=== PATIENT | male | born 1940 | race Hispanic/Latino ===

== ENCOUNTER 2019-02-16 12:49 | Inpatient (IN) | payer MEDICARE ==
[~2019-02-16 12:49] MED LIST: ISOVUE-370 76%-LOCM 1 ML ONE
[2019-02-16] MEDS ORDERED: Lorazepam 2 MG/ML VIAL ONE ×2 (13:10→16:31)
[2019-02-16 13:25] LABS: #Eosinphils 0.1 thou/uL (0.0-0.7); #Lymphocytes 0.8 thou/uL (1.20-3.40); #Monocytes 0.5 thou/uL (0.11-0.59); #Neutrophils 8.9 thou/uL (1.40-6.50); %Basophils 0.3 % (0.0-1.0); %Eosinophils 0.5 % (0.0-10.0); %Lymphocytes 7.8 % (21.0-51.0); %Monocytes 5.3 % (0.0-10.0); %Neutrophils 86.1 % (42.0-75.0); Hemoglobin 16.3 g/dL (14.0-18.0); Mean Corpuscular HGB CONC 31.5 g/dL (32.0-36.0); Mean Corpuscular Hemoglobin 29.4 pg (27.0-31.0); Mean Corpuscular Volume 93.4 fL (78.0-98.0); Mean Platelet Volume 10.2 fL (7.4-10.4); Platelet Count 164 thou/uL (130-400); RBC Distribution Width 14.6 % (11.5-14.5); Red Blood Cell (RBC) Count 5.56 mill/uL (4.70-6.10); White Blood Cell (WBC) Count 10.3 thou/uL (4.8-10.8)
--- NOTE | 2019-02-16 13:29 | RAD ---
Exam: Chest one view HISTORY:Short of breath Comparison: None FINDINGS: Lungs: Diffuse interstitial prominence bilaterally Cardiac silhouette:Accentuated by portable technique Pulmonary vessels: Mild pulmonary vascular prominence Pleural Spaces: Clear Pneumothorax: None Osseous abnormalities: None of acuity. IMPRESSION: Bilateral interstitial opacities as well as prominence of pulmonary vasculature. This cou ld relate to fluid overload. Correlation with clinical evaluation is recommended. As necessary imaging follow-up may also be obtained.
[2019-02-16 13:33] LABS: Actual Bicarbonate (HCO3a) 12.5 mEq/L (22-28); Analyzer IN Cardio ER; Base Excess (BEa) -11.3 mEq/L (-2.0 to +3.0); Calcium, Ionized 1.14 mmol/L (1.12-1.30); Carboxyhemoglobin (COHb) 0.8 gm% (0.0-3.0); Hemoglobin (Hb) 15.7 g/dL (14.0-18.0); O2 Tension (PaO2) 175.4 mmHg (> 70.0); Potassium - ABG Lab 3.88 mmol/L (3.70-5.30); pH, Arterial 7.33 (7.35-7.45)
[2019-02-16 13:35] LABS: CO2 Tension 24.4 mmHg (35.0-45.0); Puncture Site L.R.
[2019-02-16 13:50] LABS: ALT (SGPT) 14 U/L (8-55); AST (SGOT) 24 U/L (5-34); Albumin 3.7 g/dL (3.4-4.8); Alkaline Phosphatase 137 U/L (40-110); Anion Gap 20 mmol/L (10-20); BUN (Urea Nitrogen) 22 mg/dL (8.4-25.7); Bilirubin, Total 2.7 mg/dL (0.2-1.2); Calc. Creatinine Clearance 0 mL/min (70-130); Calcium 9.2 mg/dL (7.8-10.44); Carbon Dioxide 16 mmol/L (23-31); Chloride 108 mmol/L (98-107); Estimated GFR-MDRD 49; Globulin 4.2 g/dL (2.4-3.5); Glucose 114 mg/dL (83-110); Potassium 4.4 mmol/L (3.5-5.1); Protein, Total 7.9 g/dL (5.8-8.1); Sodium 140 mmol/L (136-145)
[2019-02-16 13:54] LABS: INR-International Normal Ratio 3.5; PTT 37.1 SEC (22.9-36.1); Prothrombin Time 34.6 SEC (12.0-14.7)
[2019-02-16] MEDS ORDERED: Azithromycin 500 MG VIAL ONE (13:57)
[2019-02-16] MEDS ORDERED: cefTRIAXone\\ROCEPHIN 2 GM VIAL ONE (13:57)
--- NOTE | 2019-02-16 14:56 | CT ---
Exam: CT angiogram of the chest HISTORY: Hypoxic respiratory failure. COPD. COMPARISON: 07/26/2012 TECHNIQUE: CT angiogram of the chest is performed in the axial plane. Three-dimensional reformatted i mages are submitted for interpretation FINDINGS: Mediastinum: Nonspecific increased fullness along the inferior right and left hilum as well as the varghese bcarinal region. Discrete mass is difficult to appreciate, due to timing of bolus. There does appear to be enlarged precarinal lymph node measuring 2.0 x 1.2 cm. HEART: Normal size. No significant pericardial fluid. Aorta: Atherosclerosis. No obvious aneurysm or dissection. Upper solid abdominal viscera: No abnormality enhancement. Trachea and central bronchi: Patent Pleural spaces: Loculated and free fluid in the right pleural space Lung parenchyma: Right lung: Extensive emphysematous change. Scarring and bullous formation in the apex. Additional ar eas of scarring and atelectasis in the dependent portion of the right lower lobe. 3 mm solid nodule in the medial right lung apex. Left lung: Emphysematous changes are extensive. Scarring and bullous formation in the apex. Groundgla ss nodule in the left upper lobe measuring 0.6 x 0.8 cm. There is a groundglass nodule measured 0.5 x 0.6 cm. Linear opacity in the lingula and left lower lobe likely represent areas of atelectasis and scar. Pneumothorax: None Osseous structures: No lytic or blastic lesions Pulmonary arteries: Adequate contrast opacification pulmonary arterial system to the level of segment al arteries. No filling defect to suggest pulmonary embolism IMPRESSION: 1. No evidence of pulmonary artery embolism to the level of segmental arteries 2. Extensive emphysematous changes. 3. Probable mediastinal and hilar lymphadenopathy, incompletely evaluated. 4. Groundglass nodule in the left upper lobe. No significant change since the examination from July 2012. Nevertheless, consider pulmonary consultation given underlying lung parenchymal changes. Code lung nodule
[2019-02-16 14:57] LABS: Bacteria/HPF None Seen HPF (None Seen); Bilirubin 1+ (Negative); Blood, Urine 2+ (Negative); Clarity Turbid (Clear); Glucose, Urine (Dipstick) Normal (Negative); Leukocyte Negative Leu/uL (Negative); Nitrite Negative (Negative); Protein, Urine (Dipstick) 200 mg/dL (Neg-Trace); Squamous Epithelial 0-3 HPF (0-3); Urobilinogen 6 mg/dL (Less than 2)
[2019-02-16] MEDS ORDERED: Acetaminophen 325 MG TAB PO PRN (14:57)
[2019-02-16] MEDS ORDERED: Ondansetron ODT 4 MG TAB PO PRN (14:57)
[2019-02-16] MEDS ORDERED: Senokot S 8.6-50 MG TAB PO PRN (14:57)
[2019-02-16] MEDS ORDERED: Ondansetron PF 4 MG/2 ML Vial IVP PRN (14:57)
[2019-02-16] MEDS ORDERED: Furosemide 40 MG/4 ML VIAL ONE (15:13)
[2019-02-16] MEDS ORDERED: methylPREDNISolone Sod Succ 40 MG VIAL ONE (15:13)
--- NOTE | 2019-02-16 15:50 | PDOC.EVN ---
Event Note - Event Note Event Note: Date/Time: 02/16/19 1548 I personally performed or re-performed the physical examination and medical decision making. I have verified all resident documentation or findings, including history, physical exam and/or medical decision making. Please see Dr. Mortensen's dictated H&P for full details. Additional history obtained from patient's . Patient is a 78 yo HM with PMH of HTN, extensive smoking history, and limited outpatient follow up. He presents with acute worsening of shortness of breath that his states started several months ago. Patient required BiPAP with EMS and receive nebulizer treatments and IV mag. In ER, bipap continued, labs were drawn, blood cultures obtained, and had CTA chest that was negative. BNP elevated >2000. ABG showed hypocapnea, pH 7.33. Receive lasix, solumedol, ativan, azithro, and rocephin. Exam remarkable for diffuse faint wheezes. Patient easily awaken and followed commands. plan to admit to IMCU, continue lasix, steroids, nebs, and bipap. TTE ordered to evaluate cardiac function. Procal ordered to evaluate for infection. trend lactate and troponin. Direct/indirect bili to evaluate hyperbilirunemia (likely due to vascular congestion).
[2019-02-16 17:26] LABS: Troponin I 0.036 ng/mL (< 0.028)
[2019-02-16 17:28] LABS: Bilirubin, Direct 1.4 mg/dL (0.1-0.3); Bilirubin, Total 2.2 mg/dL (0.2-1.2)
[2019-02-16 18:07] LABS: Lactic Acid 6.3 mmol/L (0.5-2.2)
[2019-02-16] MEDS: Ipratropium Bromide 2.5 ml Neb NEB SCH ×2 (18:31→22:17)
[2019-02-16] MEDS: Furosemide 40 MG/4 ML VIAL SLOW IVP SCH (19:15)
[2019-02-16] MEDS: methylPREDNISolone Sod Succ 40 MG VIAL IVP SCH (19:20)
[2019-02-16 19:30] LABS: Troponin I 0.016 ng/mL (< 0.028)
[2019-02-17] MEDS: methylPREDNISolone Sod Succ 40 MG VIAL IVP SCH ×2 (00:22→06:31)
[2019-02-17] MEDS: Ipratropium Bromide 2.5 ml Neb NEB SCH ×2 (02:10→08:10)
[2019-02-17 04:44] LABS: INR-International Normal Ratio 3.9; Prothrombin Time 37.8 SEC (12.0-14.7)
[2019-02-17 04:57] LABS: ALT (SGPT) 16 U/L (8-55); AST (SGOT) 20 U/L (5-34); Albumin 3.1 g/dL (3.4-4.8); Alkaline Phosphatase 96 U/L (40-110); Anion Gap 13 mmol/L (10-20); BUN (Urea Nitrogen) 22 mg/dL (8.4-25.7); Band 15 % (5-11); Bilirubin, Total 1.5 mg/dL (0.2-1.2); Calc. Creatinine Clearance 44 mL/min (70-130); Calcium 8.4 mg/dL (7.8-10.44); Carbon Dioxide 23 mmol/L (23-31); Chloride 109 mmol/L (98-107); Estimated GFR-MDRD 54; Globulin 3.4 g/dL (2.4-3.5); Glucose 168 mg/dL (83-110); Hemoglobin 14.3 g/dL (14.0-18.0); Lymphocytes 7 % (21-51); MDiff Complete? YES; Mean Corpuscular HGB CONC 31.8 g/dL (32.0-36.0); Mean Corpuscular Hemoglobin 29.3 pg (27.0-31.0); Mean Corpuscular Volume 92.1 fL (78.0-98.0); Mean Platelet Volume 10.2 fL (7.4-10.4); Neutrophil 78 % (42-75); Platelet Count 113 thou/uL (130-400); Platelet Morphology Comment Appears Decreased; Potassium 4.1 mmol/L (3.5-5.1); Protein, Total 6.5 g/dL (5.8-8.1); RBC Distribution Width 14.2 % (11.5-14.5); Red Blood Cell (RBC) Count 4.88 mill/uL (4.70-6.10); Sodium 141 mmol/L (136-145); White Blood Cell (WBC) Count 10.8 thou/uL (4.8-10.8)
--- NOTE | 2019-02-17 06:02 | PDOC.FM ---
- Subjective Subjective: Pt admitted yesterday to [facility] from ER for possible acute CHF exacerbation (new onset) vs COPD exacerbation (also new per family) on bipap. reports he had an inhaler at home that is out of medication, uncertain of what type of medication it was. Today patient is doing well, he is satting 97% on RA, respirations 18-24 on RA. He denies SOB. states she does not know how long he has had the ulcers present on BLE. - Objective Vital Signs & Weight: Vital Signs (12 hours) Temp Pulse Resp Pulse Ox 02/17/19 03:18 97.5 F L 02/17/19 02:10 87 19 100 02/16/19 23:13 97.4 F L 02/16/19 22:17 89 20 100 02/16/19 19:38 97.1 F L 02/16/19 18:41 98.3 F 02/16/19 18:31 96 25 H 96 Weight Weight 65.317 kg Most Recent Monitor Data Heart Rate from ECG 86 NIBP 120/75 NIBP BP-Mean 90 Respiration from ECG 21 SpO2 100 Result Diagrams: 02/17/19 04:30 02/17/19 04:30 Phys Exam - Physical Examination Constitutional: NAD dry MM Neck: no nodes, supple Respiratory: no wheezing, no rales, no rhonchi, clear to auscultation bilateral normal breath sounds at the bases Cardiovascular: RRR, no significant murmur Gastrointestinal: soft, non-tender, no distention Musculoskeletal: pulses present Neurological: non-focal, moves all 4 limbs Deviation from normal: flat affect Deviation from normal: bilateral venous stasis ulcers over lower extremities, L> R -: erythematous rash LLE on thigh, hx shingles Dx/Plan (1) COPD (chronic obstructive pulmonary disease) Status: Acute (2) Emphysema of lung Code(s): J43.9 - EMPHYSEMA, UNSPECIFIED Status: Acute (3) Lung nodule < 6cm on CT Code(s): R91.1 - SOLITARY PULMONARY NODULE Status: Acute (4) Hx of pulmonary embolus Code(s): Z86.711 - PERSONAL HISTORY OF PULMONARY EMBOLISM Status: Chronic (5) Venous stasis dermatitis of both lower extremities Code(s): I87.2 - VENOUS INSUFFICIENCY (CHRONIC) (PERIPHERAL) Status: Chronic (6) Venous stasis ulcer Code(s): I83.009 - VARICOSE VEINS OF UNSP LOWER EXTREMITY W ULCER OF UNSP SITE; L97.909 - NON-PRS CHRONIC ULC UNSP PRT OF UNSP LOW LEG W UNSP SEVERITY Status : Acute - Plan Plan: Acute Hypoxic Respiratory Failure -2/2 new onset CHF exacerbation vs acute COPD exacerbation -Admitted to [facility] on bipap, now satting upper 90s on RA. R increased 18-24 -Hx of PE, CTA r/o PE R/o Sepsis -T 100.6, R 37, tachy to 145 in ED. Vitals now improved R 19, P 87, T 97.5 -Bcx pending, UA showed no bacteria, Urine culture pending -Pt received rocephin and azithromycin for concern for pneumonia -Procal negative, will continue azithromycin for COPD exacerbation -Consider cellulitis of lower extremities with venous stasis ulcers/venous stasis changes Lactic Acidosis -likely 2/2 Acute hypoxic respiratory failure -9.3 trended down to 6.3, continue to trend Possible New Onset CHF -CXR showed pulmonary congestion, BNP >2000. -Trops downtrended: 0.016-> 0.035 -> 0.010 -Lungs clear on exam this AM -Echo pending Acute COPD exacerbation -solumedrol 125 mg in ED -Continue solumedrol, duonebs q4h -Azithromycin -CT showed emphysematous changes - reports he has inhaler at home but is unaware of diagnosis, this is possibly not a new diagnosis Lung nodule -3 mmm ground glass nodule Right apex -F/up with pulmonary recs Venous stasis ulcers BLE -pulses present bilat -Wound care consulted Elevated INR, Hx of PE -CTA r/o PE -Pt is on warfarin at home for hx PE -INR elevated >3 today, hold home warfarin, continue to monitor INR and monitor for s/s bleeding Elevated bili -Likely 2/2 vascular congestion -Improved on AM labs Dispo: Likely can transfer out of [facility] today to tele Addendum - Attending - Attending Attestation Date/Time: 02/17/19 9557 I personally evaluated the patient and discussed the management with Dr. Turcios I agree with the History, Examination, Assessment and Plan documented above with any addition or exceptions noted below. Patient doing much better. Off BiPAP. Transitioned to supplemental O2 and now on room air without difficulty. Ok to transfer to tele. Will continue Azithro and systemic steroids for treatment of COPD exacerbation. Inhalers added. Continue kacey Kiera nebs. ECHO pending. Patient with new onset HF. Will consult cards. Continue to diuresis. Add ACEI. Will add beta lin as tolerated. Supra therapeutic INR. Continue to hold warfarin. Restart at 2. Significant PVD and venous dz in bilateral lower extremities. Pop pulse on right. Unable to palpate on left. Wound care following for ulcers. CV surg as needed. Raghu
[2019-02-17] MEDS: Furosemide 40 MG/4 ML VIAL SLOW IVP SCH (06:31)
[2019-02-17 06:45] LABS: Magnesium 2.4 mg/dL (1.6-2.6); Phosphorus 3.9 mg/dL (2.3-4.7)
[2019-02-17 07:51] LABS: Lactic Acid 3.6 mmol/L (0.5-2.2)
[2019-02-17] MEDS ORDERED: Prevnar 13-Val Conj/PF 0.5 ML SYRINGE IM ONE (09:00)
[2019-02-17] MEDS ORDERED: FLU VACC TS2019-20(65YR UP)/PF 180 MCG/0.5 ML SYRINGE IM ONE (09:00)
--- NOTE | 2019-02-17 09:26 | RAD ---
1 VIEW CHEST: Date: 02/17/19 COMPARISON: 02/16/19. FINDINGS: Normal cardiac silhouette. Pulmonary vessels and hilum are normal. Costophrenic angles are clear. Chr onic change in lung parenchyma, without consolidation or mass. No pneumothorax or osseous abnormaliti es. IMPRESSION: No acute cardiopulmonary process. POS: [facility]
[2019-02-17] MEDS: Aspirin Chewable 81 MG TAB PO SCH (10:00)
[2019-02-17] MEDS: Azithromycin 250 MG TAB PO SCH (10:00)
[2019-02-17] MEDS ORDERED: Furosemide 40 MG/4 ML VIAL SLOW IVP SCH (10:08)
[2019-02-17] MEDS ORDERED: Furosemide 20 MG/2 ML VIAL SLOW IVP SCH ×2 (10:15→14:00)
--- NOTE | 2019-02-17 11:15 | HP ---
RESIDENT: Tirso Mortensen D.O. PRIMARY CARE PROVIDER: Dr. Dailey. HISTORY OF PRESENT ILLNESS: This is a 78-year-old male, who presents to the emergency room via EMS with complaint of progressively worsening shortness of breath with an acute worsening today. At the time of the history and physical, the patient was on BiPAP and had difficulty with mentation and communication. The majority of this history is from the patient's . Per patient's , the patient has had progressively worsening shortness of breath with exertion over the past six months. She also noticed that over the past 2 to 3 months, he has not been able to lie flat and sleep at night, has been having to prop himself up. She states that over the last 2 to 3 months, he has barely been able to walk around the grocery store without becoming short of breath. The patient has not seen a physician for this complaint. He does have a history of unprovoked pulmonary embolism, for which he [facility]. Upon arrival by EMS, it was noticed the patient to be in severe respiratory distress and placed him on BiPAP, gave him DuoNebs and magnesium. On arrival in the ER, they maintained BiPAP for what appeared to be a CHF or COPD exacerbation. He was given Lasix, Rocephin, and azithromycin in the emergency room. A CTA was also ordered to rule out pulmonary embolism. Per patient's , he has no known history of CHF or COPD. PAST MEDICAL HISTORY: Unprovoked pulmonary embolism. PAST SURGICAL HISTORY: None. SOCIAL HISTORY: Has a [id number] history of smoking. The patient has not smoked in last five years. Denies alcohol or recreational drugs. FAMILY HISTORY: Noncontributory. ALLERGIES: NONE. CURRENT MEDICATIONS: 1. Warfarin 1mg daily REVIEW OF SYSTEMS: GENERAL: Denies fever, chills, or fatigue. HEENT: Denies headaches, change in vision, double vision, or sore throat. CARDIOVASCULAR: Complains of worsening or exertional dyspnea and positional orthopnea. Denies chest pain or palpitations. Complains of periodic edema in the legs. RESPIRATORY: Complains of shortness of breath. Denies cough. GI: Denies nausea, vomiting, constipation, or diarrhea. EXTREMITIES: Complains of ulcerations on both lower extremities and periodic edema. NEUROLOGIC: Denies numbness, weakness, changes in vision, or loss of vision. LABORATORY DATA: White count 10.3, hemoglobin 16.3, hematocrit 51.3, platelets 164, neutrophil percentage is 86.1, INR is 3.5, PT is 34.6, and PTT is 37.1. Blood gas shows a pH 7.33, pCO2 is 24.4, and PO2 is 175.4. Chemistry; sodium 140, potassium 4.4, chloride 106, carbon dioxide 16, creatinine 1.4, glucose 114, lactic acid is 9.8, calcium is 9.2, total bilirubin is 2.7, AST is 24, ALT is 14, alkaline phosphatase 137, total serum protein 7.9, and albumin is 3.7. BNP is 2189. Troponin 0.1, then 0.036. Procalcitonin 0.04. Urine shows color yellow, clarity turbid, pH 5.5, specific gravity 1.026, urine protein 200, urine glucose normal, urine ketones negative, urine blood 2+, urine nitrites negative, urine bilirubin 1+, urobilinogen 6, leukocyte esterase negative, rbc's 4 to 6, wbc's 4 to 6, squamous 0 to 3, bacteria none, hyaline casts 7 to 10, and granular casts 21 to 50. PHYSICAL EXAMINATION: VITAL SIGNS: Blood pressure 117/73, respiratory rate 23, O2 saturation 100% on BiPAP, pulse 91, temperature 97.3, and weight is 63.5. GENERAL: The patient is arousable, however, in severe respiratory distress, on BiPAP. HEENT: Normocephalic, atraumatic. CARDIOVASCULAR: Regular rate and rhythm. Heart sounds are distant and difficult to auscultate over the sound of BiPAP. LUNGS: Have appreciable crackles in the bases. RESPIRATORY: There are appreciable crackles in the bases of the lung apple. Good air movement. ABDOMEN: Nontender, nondistended. Normal bowel sounds and soft. EXTREMITIES: Upper extremities are normal. Lower extremities; starting at mid tibia, there is significant amount of venous stasis with ulcerations throughout nor has any purulence and appears to be nontender. There are no palpable pulses in either foot. NEUROLOGICAL: There are no focal neurological deficits. Cranial nerves 2 through 12 appear to be intact grossly. IMAGING DATA: Chest x-ray shows pulmonary vascular congestion, bilateral. CTA shows no pulmonary embolism with extensive emphysematous changes, mediastinal lymphadenopathy, and ground-glass nodule in the upper lobe with no change since July 2012. ASSESSMENT AND PLAN: This is a 78-year-old male in acute hypoxic respiratory failure secondary to what appears to be congestive heart failure and/or chronic obstructive pulmonary disease. 1. Acute hypoxic respiratory failure. Admit to IMCU. Continue BiPAP. This appears to be a mixed picture of chronic obstructive pulmonary disease and congestive heart failure. We will continue to diurese with Lasix. We will also treat with IV steroids. Strict I's and O's. We will order echo for the morning to evaluate cardiac function. Scheduled DuoNebs. At this time, this patient does not appear to be approaching respiratory collapse and should be able to improve on BiPAP; however, I will keep a close eye on him overnight and intubate if necessary. Repeat chest x-ray in the morning. 2. Elevated troponin. This is likely secondary to demand. We will continue to trend. EKG is reassuring. There are no ST elevations or T-wave inversions. 3. Acute kidney injury over chronic kidney disease. Most recent creatinine is from 2014, so it is unclear if this is acute or chronic. We will diurese and trend the value daily. 4. Elevated BNP, likely secondary to volume overload. 5. History of pulmonary embolism. We will continue the patient's warfarin as currently it is therapeutic INR. 6. Elevated bilirubin. This is likely secondary to vascular congestion. We will continue to trend. 7. Venous stasis ulcers. We will consult Wound Care. These did not appear to be acutely infected. Procalcitonin is consistent with no acute infection. DISPOSITION: The patient is currently stable, however, is in critical condition at this time. We will continue to monitor closely overnight. We would expect a hospital stay of a minimum of 3 to 4 days. ATTENDING ADDENDUM: Agree with documentation. See my H&P for additional comments. Job ID: [id number] MTDD
[2019-02-17 13:07] LABS: Bilirubin, Total 1.5 mg/dL (0.2-1.2)
[2019-02-17 13:37] VITALS: BMI 20.4
[2019-02-17] MEDS: Lisinopril 2.5 MG TAB PO SCH (15:34)
--- NOTE | 2019-02-17 15:52 | CON ---
DATE OF CONSULTATION: HISTORY OF PRESENT ILLNESS: A 78-year-old gentleman who at one time worked at [employer], who presented with shortness of breath, cough, unresponsive to usual home medication. He has known history of significant peripheral vascular disease according to his . Most days, he can barely walk even a couple of 100 feet without getting markedly short of breath. No chest pain, chills, or sweats. In 2013, diagnosis of pulmonary emboli was made. Apparently, he has been on Coumadin for a long period of time. Denies hemoptysis. CT chest done at the time of admission showed bullous disease and a small lung nodule as noted below. PAST MEDICAL HISTORY: Peripheral vascular disease, pulmonary emboli, COPD, severe deconditioning, weight loss, former smoker. PAST SURGICAL HISTORY: Cholecystectomy, some kind of renal surgery. SOCIAL HISTORY: Quit smoking 10 years ago. A pack a day. Alcohol, none. HOME MEDICATIONS: Include Coumadin 1 mg a day. He has no inhalers. ALLERGIES: NONE. REVIEW OF SYSTEMS: Otherwise unremarkable. PHYSICAL EXAMINATION: GENERAL: The patient is in mild distress. VITAL SIGNS: Saturations are 94% on room air, respiratory rate 18, [id number] blood pressure 146/93. EXTREMITIES: He has extensive ulceration and stasis on the lower extremity. CHEST: Decreased breath sounds. No wheezing. CARDIAC: Normal S1 and S2. No gallops. ABDOMEN: No masses. LABORATORY DATA: Platelet count 113, white count 10,000, hemoglobin and hematocrit 14 and 45, slight left shift, 78 segs, 15 bands. Creatinine 1.30. BNP was elevated at 2189. DIAGNOSTIC DATA: X-ray shows hyperinflation. CT chest shows bullous disease, right lower lobe 3 mm nodule, bilateral pleural effusions, nonspecific ground-glass scarring in the lingula. No PE. IMPRESSION: Chronic obstructive pulmonary disease; bullous disease; lung nodule , too small, ground-glass, probably secondary to congestive heart failure; elevated BNP, greater than a 1000; former smoker; peripheral vascular disease; history of pulmonary embolism, on long-term low-dose Coumadin. Pulmonary stinson, I have added scheduled neb treatment, Dulera. Switch over to oral prednisone tomorrow. Agree with empiric antibiotics. The ground-glass is probably from his CHF, await input from echo. His INR was surprisingly 3.9 with him taking Coumadin 1 mg a day. We will follow. Consultation note, 70 minutes, 50% direct patient care. Job ID: [id number] MTDD
--- NOTE | 2019-02-17 18:02 | CON ---
DATE OF CONSULTATION: 02/17/2019 PRIMARY SUPERVISOR [employer]: Dr. Soco Pfeiffer. HISTORY OF PRESENT ILLNESS: Mr. Hemphill is a pleasant 78-year-old gentleman, who comes to the hospital for shortness of breath. He has COPD and noticed worsening shortness of breath that did not respond to his normal medications, so he decided to come in for evaluation. He was given a couple doses of IV Lasix and he has diuresed a lot better and already is breathing back to his baseline. PAST MEDICAL HISTORY: History of pulmonary embolism in the past. PAST SURGICAL HISTORY: None. SOCIAL HISTORY: [id number] history of smoking, none for the last five years. No alcohol or drugs. FAMILY HISTORY: Noncontributory. OUTPATIENT MEDICATIONS: Coumadin. REVIEW OF SYSTEMS: A 12-point review of systems was done and was all negative unless stated in the history of present illness. PHYSICAL EXAMINATION: VITAL SIGNS: Temperature 97.2, pulse 95, respiratory rate 24, saturating 90% on 3 L. GENERAL: Awake, alert, and oriented x3. No distress. HEENT: Normocephalic, atraumatic. NECK: Supple. LUNGS: Have reduced breath sounds. CARDIOVASCULAR: S1 and S2. No S3 or S4. There is a grade 3/6 systolic murmur at the right upper sternal border and on the fourth intercostal space and left sternal border. ABDOMEN: Soft. Positive bowel sounds. EXTREMITIES: No edema. SKIN: Warm and dry. LABORATORY DATA: Laboratory work was reviewed. White count of 10, hemoglobin 16, hematocrit 51, platelet count of 164. Coags with an INR of 3.9. ABG was reviewed. Chemistry with a lactic acid of 6, was 3 down to 3.6. Troponin was negative. BNP was 2189. UA; turbid, 200 protein, 2+ blood, 1+ bilirubin. EKG was reviewed. Chest x-rays were reviewed. CTs were reviewed. ASSESSMENT AND PLAN: 1. Acute on chronic systolic versus diastolic heart failure. 2. Most likely has pulmonary hypertension. 3. Chronic obstructive pulmonary disease. 4. History of tobacco use. PLAN: 1. Echocardiogram pending. Most likely we will have significant amount of pulmonary hypertension. 2. He seems to be back to his normal fluid status. He feels lot more comfortable and back to baseline. 3. His creatinine is starting to creep up. Most likely related to his level of pulmonary hypertension and his diuresis is being sufficient for now. We will hold for now. We will give him just p.o. p.r.n. as needed to use for swelling or increased shortness of breath. 4. Thank you for letting us to participate in the care of your patient. Dr. Pfeiffer will follow up in the morning. Job ID: [id number]
[2019-02-17] MEDS: Mometasone/Formoterol 120 PUFF INHALER INH SCH (18:36)
[2019-02-18 05:37] LABS: ALT (SGPT) 15 U/L (8-55); AST (SGOT) 19 U/L (5-34); Albumin 3.1 g/dL (3.4-4.8); Alkaline Phosphatase 100 U/L (40-110); Anion Gap 13 mmol/L (10-20); BUN (Urea Nitrogen) 32 mg/dL (8.4-25.7); Bilirubin, Total 1.2 mg/dL (0.2-1.2); Calc. Creatinine Clearance 51 mL/min (70-130); Calcium 8.8 mg/dL (7.8-10.44); Carbon Dioxide 25 mmol/L (23-31); Chloride 106 mmol/L (98-107); Estimated GFR-MDRD 64; Globulin 3.4 g/dL (2.4-3.5); Glucose 128 mg/dL (83-110); Magnesium 2.4 mg/dL (1.6-2.6); Protein, Total 6.5 g/dL (5.8-8.1); Sodium 140 mmol/L (136-145)
[2019-02-18 05:49] LABS: INR-International Normal Ratio 3.8; Prothrombin Time 36.9 SEC (12.0-14.7)
--- NOTE | 2019-02-18 06:46 | PDOC.FM ---
- Subjective Subjective: Patient did well overnight. He denies CP, SOB, abdominal pain, or leg pain this morning. He did not ambulate yesterday. He reports nausea this morning after his nebulizer treatment. - Objective Vital Signs & Weight: Vital Signs (12 hours) Temp Pulse Resp BP Pulse Ox 02/18/19 03:35 97.6 F 93 16 115/62 93 L 02/18/19 00:39 99 18 97 02/17/19 20:25 98.5 F 103 H 18 128/76 99 02/17/19 20:00 98.9 F Weight Admit Weight 65.317 kg Weight 63.957 kg Most Recent Monitor Data Heart Rate from ECG 100 NIBP 121/71 NIBP BP-Mean 87 Respiration from ECG 19 SpO2 87 I&O: 02/16/19 02/17/19 02/18/19 06:59 06:59 06:59 Intake Total 30 1250 Output Total 150 225 Balance -120 1025 Result Diagrams: 02/20/19 05:05 02/20/19 05:05 Phys Exam - Physical Examination Constitutional: NAD Alert and oriented Neck: no nodes, supple Respiratory: no wheezing, clear to auscultation bilateral Gastrointestinal: soft, non-tender, no distention, positive bowel sounds 1+ pitting edema BLE Neurological: non-focal, moves all 4 limbs Psychiatric: normal affect, A&O x 3 Skin: cap refill <2 seconds Deviation from normal: Erythema of BLE with 1+ pitting edema, ulcers BLE have been dressed -: Flat purple rash over back ( states scarring from shingles) Dx/Plan (1) COPD (chronic obstructive pulmonary disease) Status: Acute (2) Emphysema of lung Code(s): J43.9 - EMPHYSEMA, UNSPECIFIED Status: Acute (3) Lung nodule < 6cm on CT Code(s): R91.1 - SOLITARY PULMONARY NODULE Status: Acute (4) Hx of pulmonary embolus Code(s): Z86.711 - PERSONAL HISTORY OF PULMONARY EMBOLISM Status: Chronic (5) Venous stasis dermatitis of both lower extremities Code(s): I87.2 - VENOUS INSUFFICIENCY (CHRONIC) (PERIPHERAL) Status: Chronic (6) Venous stasis ulcer Code(s): I83.009 - VARICOSE VEINS OF UNSP LOWER EXTREMITY W ULCER OF UNSP SITE; L97.909 - NON-PRS CHRONIC ULC UNSP PRT OF UNSP LOW LEG W UNSP SEVERITY Status : Acute (7) Pulmonary hypertension Code(s): I27.20 - PULMONARY HYPERTENSION, UNSPECIFIED Status: Acute - Plan Plan: 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 Trops downtrended: 0.016-> 0.035 - > 0.010 -Lungs clear on exam this AM -Echo showed EF 50-55%. Reduced RV systolic function, markedly enlarged RA. Moderate to severe tricuspid regurgitation. Pulmonary HTN with RV systolic pressure 71 mmHg. -Cardiology consulted, Dr. Pfeiffer to see today -Pulmonology, Dr. Deleon, following Acute Hypoxic Respiratory Failure, resolved -Acute COPD exacerbation with right ventricular systolic dysfunction and pulmonary hypertension -Admitted to IMCU on bipap, now back to baseline on Telemetry, stable on RA -Hx of PE, CTA ruled out PE R/o Sepsis -T 100.6, R 37, tachy to 145 in ED. Vitals now improved -Bcx pending, UA showed no bacteria, Urine culture pending -Pt received rocephin and azithromycin for concern for pneumonia -Continue azithromycin for COPD exacerbation -Consider cellulitis of lower extremities with venous stasis ulcers/venous stasis changes -Procalcitonin trended up >2 this AM -BLE more erythematous, warm this AM. Consider starting vancomycin Lactic Acidosis -likely 2/2 Acute hypoxic respiratory failure -9.3 trended down to 3.6, repeat pending this AM Acute COPD exacerbation -solumedrol 125 mg in ED -Continue prednisone x4 days, duonebs -Azithromycin (02/16) -CT showed emphysematous changes -Continue dulera Lung nodules -3 nodules 3 mm solid nodule in medial right lung apex. 6x8 mm ground glass nodule KILEY 5x6 mm ground glass nodule -Extensive smoking history; quit 6 years ago -F/up with pulmonary recs, Dr. Deleon following Venous stasis ulcers BLE -pulses present bilat -Wound care consulted Elevated INR, Hx of PE -CTA r/o PE. INR likely elevated 2/2 chronic passive hepatic congestion from right heart failure -Pt is on warfarin at home for hx PE -INR elevated 3.8 today, hold home warfarin, continue to monitor INR and monitor for s/s bleeding Elevated bili -Likely 2/2 vascular congestion -Improved on AM labs Dispo: Telemetry on RA. See if patient is able to ambulate today. Breathing is much improved. Possibly home tomorrow Addendum - Attending - Attending Attestation Date/Time: 02/18/19 [id number] I personally evaluated the patient and discussed the management with Dr. Turcios I agree with the History, Examination, Assessment and Plan documented above with any addition or exceptions noted below. HD#2 Patient remains well. No acute changes overnight. No respiratory events. Continue kacey breathing treatments. Continue Azithro for acute exacerbation. INR still remains elevated. No bleeding. Continue to hold warfarin until less than 2.0. Lactic acid still elevated. Will give IVFs. Repeat. Likely ischemia related to PVD. T bili elevated. Will fractionate. Likely direct elevated 2/2 congestion. Monitor. Patient with R sided failure. Monitor fluid balance. Patient preload dependant. Cards following. Pulm following for COPD and pHTN. Continue to monitor. Raghu
[2019-02-18] MEDS: Mometasone/Formoterol 120 PUFF INHALER INH SCH ×2 (06:55→19:12)
[2019-02-18] MEDS: Azithromycin 250 MG TAB PO SCH (09:09)
[2019-02-18] MEDS: Lisinopril 2.5 MG TAB PO SCH (09:09)
[2019-02-18] MEDS: Aspirin Chewable 81 MG TAB PO SCH (09:09)
[2019-02-18] MEDS: predniSONE 20 MG TAB PO SCH (09:10)
--- NOTE | 2019-02-18 09:32 | PRG ---
DATE OF SERVICE: 02/18/2019 SUBJECTIVE: This morning, he said he is still having difficulty breathing but denies any pain or discomfort. Still short of breath. OBJECTIVE: VITAL SIGNS: Stable. Saturations are 96% on room air, temperature 97, pulse 116. CHEST: Decreased breath sounds, no wheezing. CARDIAC: Normal S1, S2. ABDOMEN: No masses. ASSESSMENT: 1. Congestive heart failure. BNP is 1831. 2. Chronic obstructive pulmonary disease, probably pulmonary hypertension. PLAN: 1. Pulmonary stinson, at this stage there is not much to offer. 2. He is on Dulera, antibiotics, prednisone. Baseline PFT can be ordered. 3. We will follow while in the hospital. Job ID: [id number]
[2019-02-18 09:54] LABS: #Basophils 0.1 thou/uL (0.0-0.2); #Lymphocytes 0.6 thou/uL (1.20-3.40); #Monocytes 0.4 thou/uL (0.11-0.59); #Neutrophils 14.2 thou/uL (1.40-6.50); %Basophils 0.4 % (0.0-1.0); %Lymphocytes 3.8 % (21.0-51.0); %Monocytes 2.4 % (0.0-10.0); %Neutrophils 93.3 % (42.0-75.0); Mean Corpuscular HGB CONC 32.5 g/dL (32.0-36.0); Mean Corpuscular Hemoglobin 30.3 pg (27.0-31.0); Mean Corpuscular Volume 93.3 fL (78.0-98.0); Mean Platelet Volume 10.4 fL (7.4-10.4); Platelet Count 115 thou/uL (130-400); RBC Distribution Width 14.5 % (11.5-14.5); Red Blood Cell (RBC) Count 4.94 mill/uL (4.70-6.10); White Blood Cell (WBC) Count 15.2 thou/uL (4.8-10.8)
[2019-02-18 10:10] LABS: Lactic Acid 3.8 mmol/L (0.5-2.2)
[2019-02-18] MEDS ORDERED: Sodium Chloride 0.9% 500 ML IV SCH ×2 (11:15→12:00)
--- NOTE | 2019-02-18 12:55 | PDOC.CPN ---
- Subjective Date: 02/18/19 Time: 08:30 Interval history: The pt seen and examined. No overnight events. No cardiac complaints. - Objective Allergies/Adverse Reactions: Allergies Allergy/AdvReac Type Severity Reaction Status Date / Time No Known Drug Allergies Allergy Verified 04/18/14 14:32 Visit Medications: Current Medications Acetaminophen (Tylenol) 650 mg PO Q4H PRN PRN Reason: Headache/Fever/Mild Pain (1-3) Albuterol/Ipratropium (Duoneb) 3 ml NEB TID-RT [facility] Aspirin (Aspirin Chewable) 81 mg PO DAILY [facility] Last Admin: 02/18/19 09:09 Dose: 81 mg Azithromycin (Zithromax) 250 mg PO DAILY [facility] Stop: 02/20/19 09:01 Last Admin: 02/18/19 09:09 Dose: 250 mg Sodium Chloride (Normal Saline 0.9%) 500 mls @ 100 mls/hr IV .Q5H [facility] Stop: 02/18/19 16:59 Last Admin: 02/18/19 11:52 Dose: 500 mls Lisinopril (Zestril) 2.5 mg PO DAILY [facility] Last Admin: 02/18/19 09:09 Dose: 2.5 mg Mometasone Furoate/Formoterol Fumar (Dulera 200 Mcg/5 Mcg Inhaler) 2 puff INH BID-RT [facility] Last Admin: 02/18/19 06:55 Dose: 2 puff Ondansetron HCl (Zofran Odt) 4 mg PO Q6H PRN PRN Reason: Nausea/Vomiting Ondansetron HCl (Zofran) 4 mg IVP Q6H PRN PRN Reason: Nausea/Vomiting Prednisone (Prednisone) 40 mg PO QAM-WM [facility] Stop: 02/22/19 08:01 Last Admin: 02/18/19 09:10 Dose: 40 mg Senna/Docusate Sodium (Senokot S) 2 tab PO BIDPRN PRN PRN Reason: Constipation Sodium Chloride (Flush - Normal Saline) 10 ml IVF Q12HR [facility] Last Admin: 02/18/19 09:12 Dose: 10 ml Sodium Chloride (Flush - Normal Saline) 10 ml IVF PRN PRN PRN Reason: Saline Flush Vital Signs & Weight: Vital Signs Temp Pulse Resp BP BP Pulse Ox 02/18/19 09:09 99 130/74 02/18/19 09:00 98.0 F 99 16 130/74 100 02/18/19 06:55 92 16 96 02/18/19 06:51 92 16 96 02/18/19 03:35 97.6 F 93 16 115/62 93 L Admit Weight 144 lb Weight 141 lb - Physical Exam General: alert & oriented x3 HEENT: mucus membranes moist Neck: supple neck Cardiac: regular rate and rhythm, S1/S2 Lungs: decreased breath sounds Neuro: cranial nerve 2-12 intact Extremities: other: (discoloration to BLE with dression to Lt heel) - Labs Result Diagrams: 02/18/19 09:37 02/18/19 04:45 Troponin/CKMB Troponin I 0.016 ng/mL (< 0.028) 02/16/19 18:58 - Telemetry Sinus rhythms and dysrhythmias: sinus rhythm - Assessment/Plan Assessment/Plan: 1. Acute on Chronic Diastolic HF - stable with RA; No edema, SOB or ABD bloating without diuretic; On Lisinopril 2.5mg qd, but no BBlocker due to hx of COPD 2. COPD exacerbation with Lung nodule in bilat lungs - stable with RA; managed by motion picture photographer 3. Pulm HTN - stable with RA 4. Hx of PE - on Coumadin 5. Venous stasis ulcer - managed by wound care 6. Ex smoker quit in 2013 - smoking cessation education given to the pt. * From Cardiac standpoint, the pt is stable to d/c home. The pt will f/u with Dr Pfeiffer' office within 2-4 wks. Pt. seen and eval. by me.I agree with the a/P by the BRANCH SERVICE REPRESENTATIVE. no c/o at this time. Chest: decreased BS. RRR. Cardiac status is stable. I will sign off.
--- NOTE | 2019-02-18 13:55 | PQF ---
DATE: 02-18-19 ATTN: DR. CHRISTINA ZALDIVAR Please exercise your independent, professional judgment in responding to the clarification form. Clinical indicators are provided on the bottom of this form for your review Please send to correct physician who saw this patient. I did not see this patient. Thanks. Dr. Shrestha Please check appropriate box(s) to clarify if the following diagnosis has been ruled in or ruled out: SEPSIS [ ] Ruled in diagnosis [ ] Continue to treat [ ] Resolved [ x ] Ruled out diagnosis [ ] Other diagnosis [ ] Unable to determine In addition, please specify: Present on Admission (POA): [ ] Yes [ x ] No [ ] Unable to determine For continuity of documentation, please document condition throughout progress notes and discharge summary. Thank You. CLINICAL INDICATORS - SIGNS / SYMPTOMS / LABS / RESULTS AND LOCATION IN MR: PN DR. CHRISTINA ZALDIVAR 02-18-19: R/O SEPSIS: T 100.6, R 37, TACHY TO 145 IN ED, VITALS NOW IMPROVED, BCX PENDING, UA SHOWED NO BACTERIA, URINE CULTURE PENDING, PT RECEIVED ROCEPHIN AND AZITHROMYCIN FOR COPD EXACERBATION, CONSIDER CELLULITIS OF LE WITH VENOUS STASIS ULCER / VENOUS STASIS CHANGES WBC: 02-18-19: 15.2 BANDS: 02-17-19: 15 LACTIC ACID: 02-16-19: 9.8 02-16-19: 6.3 02-17-19: 3.6 02-18-19: 3.8 RISK FACTORS / RESULTS AND LOCATION IN MR: PN DR. CHRISTINA ZALDIVAR 02-18-19: R/O SEPSIS: T 100.6, R 37, TACHY TO 145 IN ED, VITALS NOW IMPROVED, BCX PENDING, UA SHOWED NO BACTERIA, URINE CULTURE PENDING, PT RECEIVED ROCEPHIN AND AZITHROMYCIN FOR COPD EXACERBATION, CONSIDER CELLULITIS OF LE WITH VENOUS STASIS ULCER/VENOUS STASIS CHANGES TREATMENTS / RESULTS AND LOCATION IN MR: ER NOTES 02-18-19: IVF NS, CEFTRIAXONE IV, AZITHROMYCIN IV (This form is maintained as a part of the permanent medical record) 2014 [employer]. All Rights Reserved NATALY [email or web address] Office: [phone] [facility]
[2019-02-18 16:15] LABS: Lactic Acid 3.9 mmol/L (0.5-2.2)
[2019-02-19 04:51] LABS: INR-International Normal Ratio 2.6; Prothrombin Time 27.9 SEC (12.0-14.7)
[2019-02-19 04:54] LABS: #Lymphocytes 0.5 thou/uL (1.20-3.40); #Monocytes 0.4 thou/uL (0.11-0.59); %Basophils 0.1 % (0.0-1.0); %Lymphocytes 4.1 % (21.0-51.0); %Monocytes 3.4 % (0.0-10.0); %Neutrophils 92.4 % (42.0-75.0); Hemoglobin 13.9 g/dL (14.0-18.0); Mean Corpuscular HGB CONC 32.9 g/dL (32.0-36.0); Mean Corpuscular Hemoglobin 30.5 pg (27.0-31.0); Mean Corpuscular Volume 92.7 fL (78.0-98.0); Mean Platelet Volume 11.1 fL (7.4-10.4); Platelet Count 116 thou/uL (130-400); RBC Distribution Width 14.2 % (11.5-14.5); Red Blood Cell (RBC) Count 4.56 mill/uL (4.70-6.10); White Blood Cell (WBC) Count 11.9 thou/uL (4.8-10.8)
[2019-02-19 05:20] LABS: Lactic Acid 3.1 mmol/L (0.5-2.2)
[2019-02-19 05:25] LABS: ALT (SGPT) 20 U/L (8-55); AST (SGOT) 23 U/L (5-34); Albumin 3.1 g/dL (3.4-4.8); Alkaline Phosphatase 106 U/L (40-110); Anion Gap 14 mmol/L (10-20); BUN (Urea Nitrogen) 34 mg/dL (8.4-25.7); Bilirubin, Total 1.4 mg/dL (0.2-1.2); Calc. Creatinine Clearance 62 mL/min (70-130); Calcium 8.4 mg/dL (7.8-10.44); Carbon Dioxide 23 mmol/L (23-31); Chloride 105 mmol/L (98-107); Estimated GFR-MDRD 82; Globulin 2.9 g/dL (2.4-3.5); Glucose 110 mg/dL (83-110); Potassium 3.6 mmol/L (3.5-5.1); Sodium 138 mmol/L (136-145)
--- NOTE | 2019-02-19 06:29 | PDOC.FM ---
- Subjective Subjective: NAEO. Patient states his breathing is much improved. Denies any SOB or chest pain. - Objective MAR Reviewed: Yes Vital Signs & Weight: Vital Signs (12 hours) Temp Pulse Resp BP Pulse Ox 02/19/19 04:00 97 F L 83 17 135/73 94 L 02/19/19 01:22 97 02/18/19 20:00 96.5 F L 91 18 119/64 100 02/18/19 19:11 92 16 97 Weight Admit Weight 65.317 kg Weight 61.377 kg Most Recent Monitor Data Heart Rate from ECG 100 NIBP 121/71 NIBP BP-Mean 87 Respiration from ECG 19 SpO2 87 I&O: 02/17/19 02/18/19 02/19/19 06:59 06:59 06:59 Intake Total 30 1250 580 Output Total 150 225 475 Balance -120 1025 105 Result Diagrams: 02/19/19 04:11 02/19/19 04:11 Phys Exam - Physical Examination Constitutional: NAD HEENT: sclera anicteric Neck: full ROM Respiratory: clear to auscultation bilateral Cardiovascular: RRR, no significant murmur, no rub Gastrointestinal: soft, non-tender, no distention, positive bowel sounds Musculoskeletal: pulses present Neurological: non-focal, normal sensation, moves all 4 limbs Psychiatric: normal affect, A&O x 3 Skin: no rash, normal turgor, cap refill <2 seconds Dx/Plan (1) COPD (chronic obstructive pulmonary disease) Status: Acute (2) Emphysema of lung Code(s): J43.9 - EMPHYSEMA, UNSPECIFIED Status: Acute (3) Lung nodule < 6cm on CT Code(s): R91.1 - SOLITARY PULMONARY NODULE Status: Acute (4) Pulmonary hypertension Code(s): I27.20 - PULMONARY HYPERTENSION, UNSPECIFIED Status: Acute (5) Venous stasis ulcer Code(s): I83.009 - VARICOSE VEINS OF UNSP LOWER EXTREMITY W ULCER OF UNSP SITE; L97.909 - NON-PRS CHRONIC ULC UNSP PRT OF UNSP LOW LEG W UNSP SEVERITY Status : Acute (6) Hx of pulmonary embolus Code(s): Z86.711 - PERSONAL HISTORY OF PULMONARY EMBOLISM Status: Chronic (7) Venous stasis dermatitis of both lower extremities Code(s): I87.2 - VENOUS INSUFFICIENCY (CHRONIC) (PERIPHERAL) Status: Chronic - Plan Plan: 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 Trops downtrended: 0.016-> 0.035 - > 0.010 -Lungs clear on exam this AM -Echo showed EF 50-55%. Reduced RV systolic function, markedly enlarged RA. Moderate to severe tricuspid regurgitation. Pulmonary HTN with RV systolic pressure 71 mmHg. -Cardiology consulted, Dr. Pfeiffer. Ready for dc and will f/u in 2-4 weeks. -Pulmonology, Dr. Deleon, following Acute Hypoxic Respiratory Failure, resolved -Acute COPD exacerbation with right ventricular systolic dysfunction and pulmonary hypertension -Admitted to IMCU on bipap, now back to baseline on Telemetry, stable on RA -Hx of PE, CTA ruled out PE R/o Sepsis -T 100.6, R 37, tachy to 145 in ED. Vitals now improved -Bcx pending, UA showed no bacteria, Urine culture NGTD -Pt received rocephin and azithromycin for concern for pneumonia. Procal downtrending. -Continue azithromycin for COPD exacerbation Lactic Acidosis -likely 2/2 Acute hypoxic respiratory failure -9.3 on admission and downtrending Acute COPD exacerbation -solumedrol 125 mg in ED -Continue prednisone x4 days, duonebs -Azithromycin (02/16) -CT showed emphysematous changes -Continue dulera Lung nodules -3 nodules - will need to f/u with pulm outpatient 3 mm solid nodule in medial right lung apex. 6x8 mm ground glass nodule KILEY 5x6 mm ground glass nodule -Extensive smoking history; quit 6 years ago -F/u with pulmonary recs, Dr. Deleon following Venous stasis ulcers BLE -pulses present bilat -Wound care consulted Elevated INR, Hx of PE -CTA r/o PE. INR likely elevated 2/2 chronic passive hepatic congestion from right heart failure -Pt is on warfarin at home for hx PE -INR elevated 3.8 today, hold home warfarin, continue to monitor INR and monitor for s/s bleeding. Can consider sending home on eliquis. Elevated bili -Likely 2/2 vascular congestion -Improved on AM labs Dispo: Telemetry on RA. Possible DC later today. Case discussed with Jorge.
[2019-02-19] MEDS: Mometasone/Formoterol 120 PUFF INHALER INH SCH ×2 (07:01→19:25)
[2019-02-19] MEDS: Azithromycin 250 MG TAB PO SCH (08:18)
[2019-02-19] MEDS: predniSONE 20 MG TAB PO SCH (08:18)
[2019-02-19] MEDS: Aspirin Chewable 81 MG TAB PO SCH (08:18)
[2019-02-19] MEDS: Lisinopril 2.5 MG TAB PO SCH (08:18)
--- NOTE | 2019-02-19 14:12 | PRG ---
DATE OF SERVICE: 02/19/2019 Please see the note from Dr. Aguilera, for which I agree. The patient was seen, evaluated, discussed, and examined with the residents by bedside. This gentleman came in with shortness of breath, probably a mixture of COPD exacerbation and congestive heart failure, diastolic only, preserved ejection fraction. Apparently, echo showed mostly right-sided heart failure and hypertension, pulmonary hypertension type issues, but is clinically improved. Stable on p.o. Lasix, steroids, erythromycin, and should be able to be sent home today with close followup with Dr. Palma. Job ID: [id number]
--- NOTE | 2019-02-19 14:29 | PDOC.CPN ---
- Subjective Interval history: The pt seen and examined. No overnight events. No cardiac complaints. - Objective Allergies/Adverse Reactions: Allergies Allergy/AdvReac Type Severity Reaction Status Date / Time No Known Drug Allergies Allergy Verified 04/18/14 14:32 Visit Medications: Current Medications Acetaminophen (Tylenol) 650 mg PO Q4H PRN PRN Reason: Headache/Fever/Mild Pain (1-3) Albuterol/Ipratropium (Duoneb) 3 ml NEB TID-RT [facility] Last Admin: 02/19/19 13:30 Dose: 3 ml Aspirin (Aspirin Chewable) 81 mg PO DAILY [facility] Last Admin: 02/19/19 08:18 Dose: 81 mg Azithromycin (Zithromax) 250 mg PO DAILY [facility] Stop: 02/20/19 09:01 Last Admin: 02/19/19 08:18 Dose: 250 mg Lisinopril (Zestril) 2.5 mg PO DAILY [facility] Last Admin: 02/19/19 08:18 Dose: 2.5 mg Mometasone Furoate/Formoterol Fumar (Dulera 200 Mcg/5 Mcg Inhaler) 2 puff INH BID-RT [facility] Last Admin: 02/19/19 07:01 Dose: 2 puff Ondansetron HCl (Zofran Odt) 4 mg PO Q6H PRN PRN Reason: Nausea/Vomiting Last Admin: 02/19/19 08:18 Dose: 4 mg Ondansetron HCl (Zofran) 4 mg IVP Q6H PRN PRN Reason: Nausea/Vomiting Prednisone (Prednisone) 40 mg PO QAM-WM [facility] Stop: 02/22/19 08:01 Last Admin: 02/19/19 08:18 Dose: 40 mg Senna/Docusate Sodium (Senokot S) 2 tab PO BIDPRN PRN PRN Reason: Constipation Sodium Chloride (Flush - Normal Saline) 10 ml IVF Q12HR [facility] Last Admin: 02/19/19 08:19 Dose: 10 ml Sodium Chloride (Flush - Normal Saline) 10 ml IVF PRN PRN PRN Reason: Saline Flush Last Admin: 02/18/19 20:29 Dose: 10 ml Vital Signs & Weight: Vital Signs Temp Pulse Resp BP BP BP Pulse Ox 02/19/19 13:30 91 16 96 02/19/19 12:13 97.8 F 95 18 108/69 95 02/19/19 08:18 94 140/83 02/19/19 08:00 97.9 F 94 20 140/83 95 02/19/19 06:59 81 18 95 02/19/19 04:00 97 F L 83 17 135/73 94 L Admit Weight 144 lb Weight 135 lb 5 oz - Labs Result Diagrams: 02/19/19 04:11 02/19/19 04:11 Troponin/CKMB Troponin I 0.016 ng/mL (< 0.028) 02/16/19 18:58
--- NOTE | 2019-02-19 15:59 | DIS ---
DATE OF ADMISSION: 02/16/2019 DATE OF DISCHARGE: 02/20/2019 RESIDENT: Shahnaz Aguilera MD ADMITTING ATTENDING: Herminio Helms MD. DISCHARGE ATTENDING: Milton Patel MD. CONSULT: Cardiology and Pulmonology, Heart Failure Clinic, Physical Therapy, Wound Care. PROCEDURES: None. DISCHARGE MEDICATIONS: 1. ASA 81mg daily 2. Lisinopril 2.5mg daily 3. Dulera 2 puff inhalation twice daily 4. Warfarin 0.5mg oral daily DISCONTINUED MEDICATION: 1. Warfarin 1 mg daily. PRIMARY DIAGNOSES: 1. Right ventricular systolic heart failure with pulmonary hypertension. 2. Acute hypoxic respiratory failure, resolved. 3. Lactic acidosis. 4. Acute COPD exacerbation. 5. Elevated INR. 6. Elevated bilirubin. SECONDARY DIAGNOSES: Lung nodules, venous stasis ulcers, history of PE. HISTORY OF PRESENT ILLNESS/HOSPITAL COURSE: This is a 78yo M who presented to the ER via EMS w/ a CC of SOB. The patient was initially on BiPAP in the ER and was having difficulty with mentation and communication. The patient's was at the bedside and able to provide further history. She stated that the patient had been SOB, especially with exertion over the past 6 months. She had noticed also that over the last 2-3 months he was having difficulty lying flat to sleep at night and that he was having to prop himself up. The patient has a hx of an unprovoked PE for which he was seeing the coumadin clinic for. The patient was given duonebs and Mg en route with EMS. He was given lasix, rocephin and azithro in the ER. CTA neg for any PE but did show groundglass nodule in left upper lobe. CXR showed bilateral interstitial opacities and prominence of pulm vasculature. Labs were significant for a lactic acid of 9.8, a BNP 2189, and procal of 2.64. The patient was admitted to [facility] for COPD/CHF exacerbation as the patient was requiring BiPAP. Cardiology and pulmonology were consulted. The patient was continued on azithro and prednisone on the floor. He was continued on lasix. Started on dulera per pulmonology. He was transferred to telemetry as he quickly came off of BiPAP and was transitioned to nasal cannula and eventually room air. Repeat CXR showed improvement. His procal downtrended throughout his stay as did the lactic acid and BNP. Echo showed EF 50-55%, dilated RV and dec RV function, dilated RA, pulmonary HTN, calcified aortic valve. He was able to work with PT/OT during his stay who recommended rehab. Rehab screen was placed. He completed his 5 day abx and steroid course while in the hospital. The patient was found to have an elevated INR and his warfarin was held for several days. It was restarted at 0.5mg daily. He will be following up with the coumadin clinic for close monitoring of his INR. Patient was found to have bilateral venous stasis ulcers. He was seen by wound care during his stay. He will need to be monitored closely by wound care at rehab to make sure these do not become infected. Patient will also need to follow up outpatient with pulmonology about lung nodules and parenchymal changes found on CTA. He was discharged to [facility] in stable condition. He will also be following up with the HF clinic outpatient. Patient and family were in agreement with care. His chronic conditions remained stable throughout his stay. DISPOSITION: Stable. DISCHARGE INSTRUCTIONS: 1. Location: Home. 2. Diet: Heart healthy. 3. Activity: Ad ashley. 4. Followup: Follow up with heart failure Clinic within 3 to 5 days. Follow up with PCP, Dr. Palma on 02/22/2019 at 11:00 a.m. Follow up with Dr. Pfeiffer within 2 to 4 weeks and follow up with Coumadin Clinic within 1 week. Job ID: [id number] MTDD
--- NOTE | 2019-02-19 20:24 | PRG ---
DATE OF SERVICE: 02/19/2019 SUBJECTIVE: Jin Hemphill had no complaints. He said he was feeling better. OBJECTIVE: VITAL SIGNS: On exam, he is afebrile. Heart rate is in the 90s, respiratory rate is in the teens, oximetry is 95% on room air, blood pressure 110/60. LUNGS: Completely clear. HEART: Regular rhythm. ABDOMEN: Soft and nontender. EXTREMITIES: Without edema. LABORATORY DATA: White count 11.9, hemoglobin 13.9, and platelets 116,000. Electrolytes are unremarkable. IMPRESSION: Chronic obstructive pulmonary disease, clinically stable. He is on mild p.o. medication. They do not do pulmonary function tests on the weekend. He could be discharged in my opinion from a Pulmonary standpoint. Job ID: [id number]
[2019-02-20 05:41] LABS: INR-International Normal Ratio 2.3; Prothrombin Time 25.1 SEC (12.0-14.7)
[2019-02-20 05:50] LABS: #Lymphocytes 0.8 thou/uL (1.20-3.40); #Monocytes 0.5 thou/uL (0.11-0.59); #Neutrophils 9.9 thou/uL (1.40-6.50); %Eosinophils 0.1 % (0.0-10.0); %Lymphocytes 6.9 % (21.0-51.0); %Monocytes 4.1 % (0.0-10.0); Mean Corpuscular HGB CONC 31.2 g/dL (32.0-36.0); Mean Corpuscular Hemoglobin 29.1 pg (27.0-31.0); Mean Corpuscular Volume 93.3 fL (78.0-98.0); Mean Platelet Volume 10.3 fL (7.4-10.4); Platelet Count 144 thou/uL (130-400); RBC Distribution Width 14.4 % (11.5-14.5); Red Blood Cell (RBC) Count 4.82 mill/uL (4.70-6.10); White Blood Cell (WBC) Count 11.1 thou/uL (4.8-10.8)
[2019-02-20 06:06] LABS: ALT (SGPT) 28 U/L (8-55); AST (SGOT) 28 U/L (5-34); Albumin 3.1 g/dL (3.4-4.8); Alkaline Phosphatase 117 U/L (40-110); Anion Gap 12 mmol/L (10-20); BUN (Urea Nitrogen) 41 mg/dL (8.4-25.7); Bilirubin, Total 1.3 mg/dL (0.2-1.2); Calc. Creatinine Clearance 44 mL/min (70-130); Calcium 8.8 mg/dL (7.8-10.44); Carbon Dioxide 24 mmol/L (23-31); Chloride 104 mmol/L (98-107); Estimated GFR-MDRD 57; Globulin 3.3 g/dL (2.4-3.5); Glucose 128 mg/dL (83-110); Potassium 4.4 mmol/L (3.5-5.1); Protein, Total 6.4 g/dL (5.8-8.1); Sodium 136 mmol/L (136-145)
--- NOTE | 2019-02-20 06:33 | PDOC.FM ---
- Subjective Subjective: NAEO. Yesterday patient was to be discharged but ultimately decided he did not yet feel strong enough to go home. PT/OT reports supports rehab. Patient is to be evaluated today. Patient is in agreement with this. States he feels well this morning. Denies any chest pain or SOB. - Objective MAR Reviewed: Yes Vital Signs & Weight: Vital Signs (12 hours) Temp Pulse Resp BP Pulse Ox 02/20/19 04:00 97.4 F L 86 16 109/71 96 02/20/19 02:54 92 L 02/19/19 20:00 97.8 F 97 18 126/69 92 L 02/19/19 19:23 92 18 92 L Weight Admit Weight 65.317 kg Weight 61.235 kg Most Recent Monitor Data Heart Rate from ECG 100 NIBP 121/71 NIBP BP-Mean 87 Respiration from ECG 19 SpO2 87 I&O: 02/18/19 02/19/19 02/20/19 06:59 06:59 06:59 Intake Total 1250 580 840 Output Total 225 475 200 Balance 1025 105 640 Result Diagrams: 02/20/19 05:05 02/20/19 05:05 Phys Exam - Physical Examination Constitutional: NAD HEENT: moist MMs, sclera anicteric Neck: supple, full ROM Respiratory: clear to auscultation bilateral Cardiovascular: RRR, no significant murmur, no rub Gastrointestinal: soft, non-tender, no distention, positive bowel sounds Musculoskeletal: no edema, pulses present Neurological: non-focal, moves all 4 limbs Psychiatric: normal affect, A&O x 3 Skin: no rash, normal turgor, cap refill <2 seconds Dx/Plan (1) COPD (chronic obstructive pulmonary disease) Status: Acute (2) Emphysema of lung Code(s): J43.9 - EMPHYSEMA, UNSPECIFIED Status: Acute (3) Lung nodule < 6cm on CT Code(s): R91.1 - SOLITARY PULMONARY NODULE Status: Acute (4) Pulmonary hypertension Code(s): I27.20 - PULMONARY HYPERTENSION, UNSPECIFIED Status: Acute (5) Venous stasis ulcer Code(s): I83.009 - VARICOSE VEINS OF UNSP LOWER EXTREMITY W ULCER OF UNSP SITE; L97.909 - NON-PRS CHRONIC ULC UNSP PRT OF UNSP LOW LEG W UNSP SEVERITY Status : Acute (6) Hx of pulmonary embolus Code(s): Z86.711 - PERSONAL HISTORY OF PULMONARY EMBOLISM Status: Chronic (7) Venous stasis dermatitis of both lower extremities Code(s): I87.2 - VENOUS INSUFFICIENCY (CHRONIC) (PERIPHERAL) Status: Chronic - Plan Plan: 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 Trops downtrended: 0.016-> 0.035 - > 0.010 -Echo showed EF 50-55%. Reduced RV systolic function, markedly enlarged RA. Moderate to severe tricuspid regurgitation. Pulmonary HTN with RV systolic pressure 71 mmHg. -Cardiology consulted, Dr. Pfeiffer. Ready for dc and will f/u in 2-4 weeks. -Pulmonology followed, appreciate recs. Patient stable for discharge from pulm standpoint. Acute Hypoxic Respiratory Failure, resolved -Acute COPD exacerbation with right ventricular systolic dysfunction and pulmonary hypertension -Admitted to IMCU on bipap, now back to baseline on Telemetry, stable on RA -Hx of PE, CTA ruled out PE R/o Sepsis -T 100.6, R 37, tachy to 145 in ED. Vitals now improved -Bcx NGTD, UA showed no bacteria, Urine culture NGTD -Pt received rocephin and azithromycin for concern for pneumonia. Procal downtrending. -Continue azithromycin for COPD exacerbation x 5 days then will dc. Lactic Acidosis -likely 2/2 Acute hypoxic respiratory failure -9.3 on admission and downtrending Acute COPD exacerbation -solumedrol 125 mg in ED -Continue prednisone x4 days, duonebs -Azithromycin (02/16) x 5 days then dc. -CT showed emphysematous changes -Continue dulera Lung nodules -3 nodules - will need to f/u with pulm outpatient 3 mm solid nodule in medial right lung apex. 6x8 mm ground glass nodule KILEY 5x6 mm ground glass nodule -Extensive smoking history; quit 6 years ago Venous stasis ulcers BLE -pulses present bilat -Wound care consulted Elevated INR, Hx of PE -CTA r/o PE. INR likely elevated 2/2 chronic passive hepatic congestion from right heart failure -Pt is on warfarin at home for hx PE -INR 2.3 on 02/20. Will restart patient's warfarin at a lower dose and continue to monitor. Elevated bili -Likely 2/2 vascular congestion -Improved on AM labs Dispo: CM consulted and letter send to [facility]. Patient to be evaluated today and possible dc if bed is available. Case discussed with oJrge.
[2019-02-20] MEDS: Mometasone/Formoterol 120 PUFF INHALER INH SCH (07:47)
[2019-02-20] MEDS: Lisinopril 2.5 MG TAB PO SCH (09:49)
[2019-02-20] MEDS: Aspirin Chewable 81 MG TAB PO SCH (09:49)
[2019-02-20] MEDS: predniSONE 20 MG TAB PO SCH (09:50)
[2019-02-20] MEDS: Azithromycin 250 MG TAB PO SCH (09:50)
[2019-02-20 15:44] VITALS: BP 98/66; TEMP 97.3
--- NOTE | 2019-02-20 16:32 | CON ---
DATE OF CONSULTATION: Please see the note of Dr. Aguilera, for which I agree. The patient was seen, evaluated, and discussed with the patient by bedside. The patient was kept overnight because of just generalized weakness and deconditioning. The patient and the family wanted to consider rehab placement. Breathing is much better. He was able to take a shower with minimum assistance this morning. Not having a lot of edema. Basically, a mixture of COPD and CHF exacerbation, but now fairly stable and the plan is to send him out hopefully to a rehab facility for strengthening. Job ID: [id number]
--- NOTE | 2019-02-20 16:51 | PRG ---
DATE OF SERVICE: 02/20/2019 SUBJECTIVE: Mr. Hemphill has no new complaints. He is awaiting transfer for rehab. He is afebrile. OBJECTIVE: VITAL SIGNS: Heart rate is 92, oximetry is 92% on room air, respiratory rate is 16, blood pressure is 90/66, earlier today. LUNGS: Clear and distant. HEART: Regular rhythm. ABDOMEN: Soft. LABORATORY DATA: White count 11.1, hemoglobin 14.0, platelets 144. Sodium 136, potassium 4.4, chloride 104, bicarb 24, BUN 41, creatinine 1.23. IMPRESSION AND PLAN: 1. Chronic obstructive pulmonary disease exacerbation, stable. 2. Deconditioning. 3. Congestive heart failure. We will follow from a distance. Job ID: [id number]
[2019-02-20] MEDS ORDERED: Warfarin Sodium 0.5 MG HALF.TAB PO SCH (17:00)
--- NOTE | 2019-02-24 09:23 | PFT ---
PATIENT HISTORY: HEIGHT: 70 WEIGHT: 141 SMOKER: NO HOW LON YRS PACKS PER DAY: 1 PRODUCTIVE COUGH: LUNG DISEASE: PHYSICIAN INTERPRETATION FINAL REPORT: Patient had fair effort and fair cooperation. FVC 3.93 (96%), FEV1 2.56 (81%), FEV1/FVC 0.65. RV 1.83 (65%), TLC 5.97 (86%) DIFFUSION 5.61 (20%) The FEV1 and FVC both fall within the normal limits. The ratio is also normal prior to bronchodilator but reduced after bronchodilator. There is a significant improvement in the FVC (14%, 480 ml) following the administration of a bronchodilator. There is no significant change in the FEV1. The Residual Volume is reduced, and Total Lung Capacity fall with in the normal limits. Diffusion Capacity is severely impaired. IMPRESSION: Overall, these pulmonary function studies are consistent with mild obstructive air flow limitation with significant reversibility, and severely reduced gas exchange. Clinical and radiographic correlation to be considered. Compressor Engineer: IGNACIO Milk Handler: IGNACIO GOODMAN
== END 2019-02-20 17:15 | DRG 291 ==
LOC: ERS 12:49 → IMCU/EMU 18:20 → 2NO 02-17 13:47
PROVIDERS: ADMIT Family Medicine; ATTEND Family Medicine
DX: I13.0 Hypertensive heart and chronic kidney disease with heart failure and stage 1 through stage 4 chronic kidney disease, or unspecified chronic kidney disease (principal); J96.01 Acute respiratory failure with hypoxia; I50.33 Acute on chronic diastolic (congestive) heart failure; N17.9 Acute kidney failure, unspecified; E87.2 Acidosis; I83.009 Varicose veins of unspecified lower extremity with ulcer of unspecified site; I27.20 Pulmonary hypertension, unspecified; I73.9 Peripheral vascular disease, unspecified; J43.9 Emphysema, unspecified; N18.9 Chronic kidney disease, unspecified; I87.2 Venous insufficiency (chronic) (peripheral); Z79.01 Long term (current) use of anticoagulants; Z87.891 Personal history of nicotine dependence; Z86.711 Personal history of pulmonary embolism
CPT/HCPCS: 36415; 51701; 71045; 71275; 80053; 81003; 81015; 82247; 82805; 83605; 83735; 83880; 84100; 84145; 84484; 85025; 85610; 85652; 85730; 87040; 87086; 87149; 87804; 90471; 90662; 90670; 93005; 93306; 94060; 94640; 94660; 94664; 94727; 94729; 96360; 96361; 96365; 96368; 96375; 96376; 99211; G0008; G0009; G0463; J0456; J0696; J1940; J2060; J2920; J7512; J7620; Q0162; Q9966

== ENCOUNTER 2019-03-05 13:12 | Inpatient (IN) | payer MEDICARE ==
[2019-03-05] MEDS ORDERED: Morphine 2 MG/ML SYRINGE ONE (14:11)
[2019-03-05] MEDS ORDERED: Ondansetron PF 4 MG/2 ML Vial ONE (14:11)
[2019-03-05 15:10] LABS: Hemoglobin 14.9 g/dL (14.0-18.0); Mean Corpuscular Hemoglobin 31.4 pg (27.0-31.0); Mean Corpuscular Volume 95.1 fL (78.0-98.0); Mean Platelet Volume 10.2 fL (7.4-10.4); Platelet Count 141 thou/uL (130-400); RBC Distribution Width 15.3 % (11.5-14.5); Red Blood Cell (RBC) Count 4.75 mill/uL (4.70-6.10); White Blood Cell (WBC) Count 13.9 thou/uL (4.8-10.8)
[2019-03-05 15:14] LABS: PTT 36.4 SEC (22.9-36.1)
[2019-03-05 15:15] LABS: Prothrombin Time 30.6 SEC (12.0-14.7)
[2019-03-05 15:17] LABS: ALT (SGPT) 23 U/L (8-55); AST (SGOT) 26 U/L (5-34); Albumin 3.5 g/dL (3.4-4.8); Alkaline Phosphatase 132 U/L (40-110); Anion Gap 19 mmol/L (10-20); BUN (Urea Nitrogen) 32 mg/dL (8.4-25.7); Bilirubin, Total 3.5 mg/dL (0.2-1.2); CK (CPK) 213 U/L (30-200); Calc. Creatinine Clearance 0 mL/min (70-130); Carbon Dioxide 19 mmol/L (23-31); Chloride 106 mmol/L (98-107); Estimated GFR-MDRD 49; Globulin 3.7 g/dL (2.4-3.5); Glucose 112 mg/dL (83-110); Potassium 4.9 mmol/L (3.5-5.1); Protein, Total 7.2 g/dL (5.8-8.1); Sodium 139 mmol/L (136-145)
[2019-03-05] MEDS ORDERED: Piperacillin/Tazobactam 4.5 GM VIAL ONE (15:31)
[2019-03-05 15:35] LABS: Band 26 % (5-11); Lymphocytes 4 % (21-51); MDiff Complete? YES; Monocytes 2 % (0-10); Neutrophil 66 % (42-75); Ovalocytes SLIGHT = 2-5 cells (100X) (0-1/hpf); Platelet Morphology Comment Appears Adequate; Polychromasia SLIGHT = 2-3 cells (100X) (0-2/hpf); Reactive Lymphocytes 2 % (0-10); Tear Drops SLIGHT = 2-5 cells (100X) (0-1/hpf)
--- NOTE | 2019-03-05 15:48 | RAD ---
Exam: Chest one view: HISTORY: Dyspnea COMPARISON: 02/17/2019 FINDINGS: Bilateral increased linear interstitial markings bilaterally and vascular congestion with possible mi ld diffuse interstitial edema. Heart size within normal limits. No confluent pneumonia. IMPRESSION: Minimal increased linear interstitial markings bilaterally possibly mild interstitial edema with some vascular congestion. No new confluent pneumonia.
[2019-03-05] MEDS ORDERED: Iopamidol-370 76% 500 ML 1 ML ONE (16:44)
[2019-03-05] MEDS ORDERED: Aspirin Chewable 81 MG TAB ONE (16:52)
[2019-03-05 16:58] LABS: Actual Bicarbonate (HCO3a) 11.5 mEq/L (22-28); Analyzer IN Cardio ER; Base Excess (BEa) -13.2 mEq/L (-2.0 to +3.0); Calcium, Ionized 1.06 mmol/L (1.12-1.30); Carboxyhemoglobin (COHb) 1.2 gm% (0.0-3.0); Hemoglobin (Hb) 14.8 g/dL (14.0-18.0); Potassium - ABG Lab 4.82 mmol/L (3.70-5.30); pH, Arterial 7.28 (7.35-7.45)
[2019-03-05] MEDS ORDERED: Sodium Bicarb 50 MEQ/50 ML VIAL ONE (17:06)
[2019-03-05] MEDS ORDERED: Acetaminophen 325 MG TAB PO PRN (17:13)
[2019-03-05] MEDS ORDERED: Ondansetron ODT 4 MG TAB PO PRN (17:13)
[2019-03-05] MEDS ORDERED: HYDROcodone/Acetaminophen 5/325 mg Tablet PO PRN ×2 (17:13)
[2019-03-05] MEDS ORDERED: Acetaminophen 650 MG Suppository PR PRN (17:13)
[2019-03-05] MEDS ORDERED: Ondansetron PF 4 MG/2 ML Vial IVP PRN (17:13)
[2019-03-05] MEDS ORDERED: CCU Electrolyte Replacement 1 EACH FS ONE (17:15)
--- NOTE | 2019-03-05 17:23 | ULT ---
EXAM: Right lower extremity venous Doppler PROVIDED CLINICAL HISTORY: Right leg pain FINDINGS: Grayscale and color Doppler sonography with spectral analysis was performed of the right common femor al, femoral, and popliteal veins. The mid right femoral through the distal popliteal demonstrate luminal noncompressibility with minimal flow seen. IMPRESSION: Nonocclusive right lower extremity deep venous thrombosis as above.
[2019-03-05] MEDS ORDERED: Potassium Phosphate 9 MMOL in Sodium Chloride 0.9% 100 ML IVPB PRN (17:24)
[2019-03-05] MEDS ORDERED: Potassium Phosphate 12 MMOL in Sodium Chloride 0.9% 250 ML 250 ML IV PRN (17:24)
[2019-03-05] MEDS ORDERED: Potassium Chloride 40 MEQ in Sodium Chloride 0.9% 250 ML 250 ML IVPB PRN (17:24)
[2019-03-05] MEDS ORDERED: Magnesium Oxide 400 MG TAB PO PRN ×2 (17:24)
[2019-03-05] MEDS ORDERED: Potassium Chloride 20 MEQ TAB PO PRN (17:24)
[2019-03-05] MEDS ORDERED: Magnesium 2 GM/50 ML 2 GM in Premix Bag 1 BAG IVPB PRN (17:24)
[2019-03-05] MEDS ORDERED: Potassium Chloride 40 MEQ in Premix Bag 1 BAG IVPB PRN (17:24)
[2019-03-05] MEDS ORDERED: Potassium Phosphate 15 MMOL in Sodium Chloride 0.9% 250 ML 250 ML IV PRN (17:24)
[2019-03-05] MEDS ORDERED: PHOS-NAK 1 PKT PACK PO PRN ×2 (17:24)
[2019-03-05] MEDS ORDERED: CCU ELECTROLYTE REPLACEMENT PROTOCOL FS PRN (17:24)
[2019-03-05] MEDS ORDERED: Ventilator Sedation Protocol 1 EACH FS ONE (17:34)
[2019-03-05] MEDS ORDERED: Norepinephrine 8 MG/0.9% NS 250 ML ONE (17:35)
[2019-03-05 17:36] LABS: CO2 Tension 24.8 mmHg (35.0-45.0); Puncture Site RBA
[2019-03-05] MEDS ORDERED: Fentanyl BOLUS 250 ML IVPB PRN (17:39)
[2019-03-05] MEDS ORDERED: Propofol BOLUS 1,000 MG/100 ML VIAL IV PRN (17:39)
[2019-03-05] MEDS ORDERED: Propofol 1,000 MG/100 ML VIAL IV PRN (17:39)
[2019-03-05] MEDS ORDERED: Morphine 2 MG/ML SYRINGE SLOW IVP PRN (17:39)
[2019-03-05] MEDS ORDERED: DISCONTINUE PREVIOUS NARCOTIC PAIN MEDICATIONS AND BENZODIAZEPINES FS SCH (17:39)
[2019-03-05] MEDS ORDERED: fentaNYL Citrate/PF 2,000 MCG in Sodium Chloride 0.9% 60 ML IV SCH ×2 (17:39→18:37)
[2019-03-05] MEDS ORDERED: Lorazepam 2 MG/ML VIAL SLOW IVP PRN (17:39)
[2019-03-05] MEDS ORDERED: Sodium Chloride 0.9% 1,000 ML IV SCH (17:45)
[2019-03-05] MEDS ORDERED: Norepinephrine 8 MG/0.9% NS 250 ML IVPB SCH (17:45)
[2019-03-05] MEDS ORDERED: Rocuronium Bromide 50 MG/5 ML VIAL ONE ×2 (17:54→17:57)
--- NOTE | 2019-03-05 18:05 | CT ---
CT ANGIOGRAM ABDOMEN AND PELVIS WITH IV CONTRAST AND 3D RECONSTRUCTIONS CT ANGIOGRAM BILATERAL LOWER EXTREMITY WITH RUNOFF TO THE FEET WITH IV CONTRAST AND 3D RECONSTRUCTION S: 03/05/19 HISTORY: Extreme bilateral leg weakness, shortness of breath and bilateral lower extremity pain. Infection low er extremity, possibly ischemia. COMPARISON: 07/26/14. FINDINGS: There is a small right and tiny left pleural effusions with associated atelectasis. Emphysematous antolin nges are seen at the right lung base. Mild increased interstitial densities are seen in each lung bas e likely related to mild chronic lung changes. The liver, spleen, pancreas, bilateral adrenal glands, kidneys, and urinary bladder demonstrate a nor mal CT appearance for arterial phase of imaging. The heart is borderline enlarged. Atherosclerotic plaque and vascular calcifications are again seen i n the abdominal aorta and involving the iliac arteries. There is an eccentric atherosclerotic plaque in the abdominal aorta just below the level of the renal arteries, and the degree of narrowing is warren roximately 40% and similar to prior exam. The renal arteries at this level are small in size but do a ppear patent. There is atherosclerotic plaque and mild to moderate narrowing at the origin of the celiac artery. T he superior mesenteric artery is patent. The VERÓNICA is very small in caliber, and the origin of the most proximal VERÓNICA is not well delineated. The VERÓNICA origin is also in the region of atherosclerotic plaque and calcification in infrarenal abdominal aorta. There is mild atherosclerotic irregularity and narrowing involving the common iliac arteries. Bilater al external iliac arteries are patent. There is mild to moderate narrowing at the origin of the right internal iliac artery due to eccentric atherosclerotic plaque and calcifications. Left internal malu c artery is patent with minimal calcifications present. There is generalized subcutaneous edema present. Small amount of free fluid is seen in the abdomen an d pelvis. Multilevel degenerative changes are seen in the spine. Suture material is seen in the anterior abdomi nal subcutaneous soft tissues. Enlarged bilateral inguinal lymph nodes which are also increased in number on the right. The largest lymph node in the right inguinal region measures 2 cm in short axis dimension with lymph node in the left inguinal region measuring 1.3 cm in short axis dimension. BILATERAL LOWER EXTREMITY RUNOFF: RIGHT LOWER EXTREMITY: Common femoral artery is patent. The right profunda femoral artery is overall patent with mild narro wing at the origin. The right superficial femoral artery is patent. There is mild atherosclerotic irr egularity of the popliteal artery but no significant narrowing is seen. The right anterior tibial art maria antonia occludes proximally. There is two vessel runoff to the right lower extremity via the peroneal and posterior tibial arteries. LEFT LOWER EXTREMITY: The left common femoral artery, profunda femoral artery, as well as superficial femoral artery are pa tent. The most distal popliteal artery on the left is small in caliber. The anterior tibial artery oc cludes proximally. There is only minimal flow seen within the proximal peroneal and posterior tibial arteries without contrast seen distal to the level of the proximal calf. Findings are worrisome for o cclusion. No enhancing vessels are seen distal to this region within the left lower extremity. This is asymmetric compared to the contralateral right side. There is subcutaneous edema seen involving the bilateral lower extremities diffusely to the level of the feet. The tibioperoneal vessels enhance more appropriately on the study in 2014. In addition, fl ow was present in the right anterior tibial artery on the prior exam as well. IMPRESSION: 1. Atherosclerotic plaque involving the abdominal aorta with multifocal areas of eccentric ather osclerotic plaque with luminal narrowing measuring approximately 40% just below the level of the kenn l arteries. 2. 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 3. The distal left popliteal artery is very small in caliber. A small amount of enhancement seen in the most proximal tibioperoneal vessels, but there is otherwise no appreciable enhancement seen w ithin the distal lower extremity vessels. Findings are worrisome for arterial occlusion of these vess els. 4. Diffuse subcutaneous edema involving the gluteal regions and each lower extremity. 5. Small amount of ascites. 6. Small right pleural effusion with trace left pleural effusion. 7. Enlarged bilateral inguinal lymph nodes. The above findings discussed with Dr. Connell in the Emergency Department on 03/05/19 at 1725 hours. POS: OFF
--- NOTE | 2019-03-05 18:09 | PDOC.FPRHP ---
- History of Present Illness Chief Complaint: Leg pain, SOB History of Present Illness: 78 yo M w/ PMH of PE and DVT on coumadin presents for cc of BL LE pain and increasing SOB. Pt reports he was recently hospitalized and went to IP rehab after hospitalization where he began having increasingly painful LE. No increased swelling. No fever, chills. Pt does report increasing CHAO. Pt appeared acutely ill and unable to provide detailed history. Pts simply reports "he can't walk." In the ED pt was found to have elevated white count with left shift and profound lactic acidosis. CTA runoff of BL LE showed no flow to LLE below popliteal and some collateral flow of RLE with noted DVT of RLE. He was given broad spectrum abx and cultures were sent. During the course of admission pt acutely decompensated and BP dropped and O2 requirement increased. Trial of Bipap failed and he was intubated for respiratory support. He had an ABG prior to intubation that showed a pH of 7.28 and pCO2 of 28 c/w metabolic acidosis. AG 19, likely related to profound lactic acidosis. Pt also had placement of central IV prior to transfer to ICU and was started on pressor support. ED Course: See Above - Allergies/Adverse Reactions Allergies Allergy/AdvReac Type Severity Reaction Status Date / Time No Known Drug Allergies Allergy Verified 04/18/14 14:32 - Home Medications Medication Instructions Recorded Confirmed Type Aspirin Chewable [Aspirin Chewable 81 mg PO DAILY tab 02/18/19 Rx Tablet] Lisinopril [Zestril] 2.5 mg PO DAILY #30 tab 02/18/19 Rx Mometasone/Formoterol 200/5 2 puff INH BID-RT #1 aer 02/18/19 Rx [Dulera 200 Mcg/5 Mcg Inhaler] Warfarin Sodium [Coumadin] 0.5 mg PO DAILY #30 tab 02/19/19 Rx - History PMHx: DVT, PE, Pulm HTN, CHF PSHx: Cholecystectomy FHx:NA Social: >50 pach year history, no alcohol or drug use - Review of Systems ROS unobtainable: due to mental status General: denies: fever/chills Respiratory: reports: shortness of breath, exercise intolerance. denies: cough Cardiovascular: reports: edema. denies: chest pain Gastrointestinal: denies: nausea, vomiting, constipation, abdominal pain Musculoskeletal: reports: pain, swelling Neurological: reports: numbness. denies: syncope - Vital signs BP: 98/61 HR: 83 RR: 19 Tmax: 97.7 Pox: 95% on ventilator Wt: 67Kg - Physical Exam Constitutional: other (Appears critically ill with signs of respiratory ditress) HEENT: normocephalic and atraumatic, PERRLA, EOMI, conjunctiva clear, grossly normal vision, grossly normal hearing -HEENT: Pt was on NC swithced to BiPAP and subsequently intubated. ET tube in place with OG tube. Neck: trachea midline, no LAD Chest: no lesions Heart: RRR, normal S1/S2, no murmurs/rubs/gallops, other (2+ pitting edema b/l LE rt worse than left. No palpable pulses on either LE, abset dorsalis pedis and absent post tib b/l) Lungs: CTAB, good air movement, no rales/rhonchi, no wheezing, no retractions, other Abdomen: soft, non-tender, bowel sounds present, no masses/distention -Neurological: No sensation of b/l LE -Skin: Dry gangrene left foot with erythematous warm to touch LE b/l. Ulcerations present on both feet, good granulation tissue present on RLE. Heme/Lymphatic: no LAD FMR H&P: Results - Labs Result Diagrams: 03/06/19 04:45 03/06/19 04:45 Lab results: WBC 13.9 thou/uL (4.8-10.8) H 03/05/19 14:36 Hgb 14.9 g/dL (14.0-18.0) 03/05/19 14:36 Hct 45.2 % (42.0-52.0) 03/05/19 14:36 MCV 95.1 fL (78.0-98.0) 03/05/19 14:36 Plt Count 141 thou/uL (130-400) 03/05/19 14:36 Band Neuts % (Manual) 26 % (5-11) H 03/05/19 14:36 ESR Westergren 37 mm/hr (Less than 20) 03/05/19 14:36 ABG pH 7.28 (7.35-7.45) L 03/05/19 16:56 ABG pCO2 24.8 mmHg (35.0-45.0) L* 03/05/19 16:56 ABG pO2 66.0 mmHg (> 70.0) 03/05/19 16:56 Sodium 139 mmol/L (136-145) 03/05/19 14:36 Potassium 4.9 mmol/L (3.5-5.1) 03/05/19 14:36 Chloride 106 mmol/L (98-107) 03/05/19 14:36 Carbon Dioxide 19 mmol/L (23-31) L 03/05/19 14:36 BUN 32 mg/dL (8.4-25.7) H 03/05/19 14:36 Creatinine 1.41 mg/dL (0.7-1.3) H 03/05/19 14:36 Glucose 112 mg/dL (83-110) H 03/05/19 14:36 Lactic Acid 9.6 mmol/L (0.5-2.2) H* 03/05/19 14:50 Calcium 9.0 mg/dL (7.8-10.44) 03/05/19 14:36 Total Bilirubin 3.5 mg/dL (0.2-1.2) H 03/05/19 14:36 AST 26 U/L (5-34) 03/05/19 14:36 ALT 23 U/L (8-55) 03/05/19 14:36 Alkaline Phosphatase 132 U/L (40-110) H 03/05/19 14:36 Creatine Kinase 213 U/L (30-200) H 03/05/19 14:36 CK-MB (CK-2) 3.0 ng/mL (0-6.6) 03/05/19 14:36 C-Reactive Protein 23.45 mg/dL (= or < 0.5) H 03/05/19 14:36 Serum Total Protein 7.2 g/dL (5.8-8.1) 03/05/19 14:36 Albumin 3.5 g/dL (3.4-4.8) 03/05/19 14:36 - EKG Interpretation EKG: NSR, No st or t wave changes. Rt axis deviation - Radiology Interpretation Other Status: image reviewed by me (CTA runoff, no flow LLE, collateral flow present RLE), report reviewed by me Chest x-ray Status: report reviewed by me (Pulm vasc congestion, Central line, ET tube and OG tube in place) FMR H&P: A/P - Problem List (1) Peripheral arterial occlusive disease Status: Acute Code(s): I77.9 - DISORDER OF ARTERIES AND ARTERIOLES, UNSPECIFIED (2) Acute respiratory failure with hypoxia Status: Acute Code(s): J96.01 - ACUTE RESPIRATORY FAILURE WITH HYPOXIA (3) Increased anion gap metabolic acidosis Status: Acute Code(s): E87.2 - ACIDOSIS (4) Septic shock Status: Acute Code(s): A41.9 - SEPSIS, UNSPECIFIED ORGANISM; R65.21 - SEVERE SEPSIS WITH SEPTIC SHOCK (5) Cellulitis Status: Acute Code(s): L03.90 - CELLULITIS, UNSPECIFIED (6) Lactic acidosis Status: Acute Code(s): E87.2 - ACIDOSIS (7) NSTEMI (non-ST elevated myocardial infarction) Status: Acute Code(s): I21.4 - NON-ST ELEVATION (NSTEMI) MYOCARDIAL INFARCTION (8) CORBY (acute kidney injury) Status: Acute Code(s): N17.9 - ACUTE KIDNEY FAILURE, UNSPECIFIED (9) Hyperbilirubinemia Status: Acute Code(s): E80.6 - OTHER DISORDERS OF BILIRUBIN METABOLISM (10) COPD (chronic obstructive pulmonary disease) Status: Acute (11) Pulmonary hypertension Status: Acute Code(s): I27.20 - PULMONARY HYPERTENSION, UNSPECIFIED (12) Hx of pulmonary embolus Status: Chronic Code(s): Z86.711 - PERSONAL HISTORY OF PULMONARY EMBOLISM - Plan 1) Septic shock: - 2/2 cellulitis of b/l LE - admit to ICU and add pressor support to maintain MAP>60 - broad spectrum abx vanc zosyn - pul crit consulted, appreciate recs 2) Acute hypoxic respiratory failure - pt has profound lactic acidosis causing AG met acidosis and overall poor pulmonary reserve, unable to compensate - clinically deteriorated during admission process requiring BiPAP with FiO2 @ 100% and still satting at 65%, eventually intubated - pulm consulted, appreciate recs 3) PAD, occlusive - no evidence of continued flow to LLE, cool extremities without palpable pulse - CV surg consulted, appreciate recs 4) CORBY vs CKD - IVF and trend - strict Is OS and monitor UOP 5) Pulm HTN: - prior pfts done in hospital - currently intubated, cont vent support - appreciate pulm recs 6) NSTEMI: - pt on coumadin at home and INR therapeutic - this is likely demand ischemia, will contiunue to trend - EKG showed NSR with no ST changes - CV surg consulted, will await recs and hold off on antiplatelet therapy for time being. 7) DVT: see above, cont coumading 8) Lactica acidosis: see above Dispo: Poor. Pt has severe PAD complicated by cellulitis resulting in septic shock now requiring pressors. Will continue broad spectrum abx and cont pressor and ventilator support. Await CV surg and pulm recs. Disposition/LOS: Poor prognosis. anticipated hospital stay > 4 days FMR H&P: Upper Level - Plan Date/Time: 03/05/19 180 Upper level h&p. See attending addendum. Addendum - Attending - Attending Attestation Date/Time: 03/05/19 6119 I personally evaluated the patient and discussed the management with Dr. Cast. I agree with the History, Examination, Assessment and Plan documented above with any addition or exceptions noted below. The patient presented with bilateral lower extremity pain and a reported "inability to walk." On exam no pulses are palpable in the lower extremities and dry gangrene was noted. Pt began to decompensate, becoming hypotensive and hypoxic. He was intubated and a central line was placed to begin levophed. Vanc and zosyn started. cultures taken. CT runoff results show occlusion. Consulting pulm/critical care and CV surg to eval for intervention. Pt admitted to ICU.
[2019-03-05 18:10] LABS: Lactic Acid 6.1 mmol/L (0.5-2.2)
[2019-03-05] MEDS ORDERED: Fentanyl 100 MCG/2 ML VIAL ONE (18:12)
[2019-03-05] MEDS ORDERED: Midazolam HCl 2 mg/2 ml Vial ONE ×2 (18:12→18:33)
[2019-03-05 18:13] LABS: Troponin I 0.242 ng/mL (< 0.028)
--- NOTE | 2019-03-05 18:32 | RAD ---
EXAM: Portable chest PROVIDED CLINICAL HISTORY: Weakness COMPARISON: Exam earlier same date FINDINGS: Cardiac and mediastinal silhouette is within normal limits. No focal consolidation, pleural fluid or pneumothorax evident. Interval intubation, with ET tube projecting the region of the thoracic inlet. IMPRESSION: Interval intubation.
--- NOTE | 2019-03-05 18:35 | PDOC.EVN ---
Event Note - Event Note Event Note: Pt seen and examined at 1655 in ER 15. Pt is admitted for Septic shock 2/2 lower extremity wounds. Pt has acute hypoxic respiratory failure, lactic acidosis, metabolic acidosis. Pt was initially on a non-rebreather, transitioned to BIPAP and ultimately intubated. He became hypotensive and we will start levophed. No palpable pulses are noted in the lower extremities. CT runoff was taken and shows complete occlusion on the left with some collateral flow on the right. Dr. Royal has been consulted for pulm/critical care and Dr. Jones for CV surgery eval. He will be placed in ICU. Will continue broad-spectrum antibiotics. Trend labs. Cultures taken.
[2019-03-05 18:52] LABS: Actual Bicarbonate (HCO3a) 15.4 mEq/L (22-28); Analyzer IN Cardio ER; Base Excess (BEa) -9.7 mEq/L (-2.0 to +3.0); CO2 Tension 31.7 mmHg (35.0-45.0); Carboxyhemoglobin (COHb) 0.6 gm% (0.0-3.0); Hemoglobin (Hb) 12.7 g/dL (14.0-18.0); O2 Tension (PaO2) 252.1 mmHg (> 70.0); Potassium - ABG Lab 3.88 mmol/L (3.70-5.30); pH, Arterial 7.31 (7.35-7.45)
[2019-03-05 19:03] LABS: ALV-art Gradient 421.275 (0-20); Puncture Site LRA
[2019-03-05 19:18] LABS: Bilirubin 1+ (Negative); Blood, Urine Trace (Negative); Clarity Clear (Clear); Glucose, Urine (Dipstick) Normal (Negative); Leukocyte Negative Leu/uL (Negative); Nitrite Negative (Negative); Protein, Urine (Dipstick) 70 mg/dL (Neg-Trace); Squamous Epithelial 0-3 HPF (0-3); WBC/HPF 0-3 HPF (0-3)
[2019-03-05 19:25] LABS: Bacteria/HPF None Seen HPF (None Seen); RBC/HPF 0-3 HPF (0-3)
--- NOTE | 2019-03-05 19:26 | RAD ---
EXAM: Portable chest PROVIDED CLINICAL HISTORY: Weakness COMPARISON: 03/05/2019 6:20 PM FINDINGS: Interval placement of right IJ central line, the tip of which projects in expected location of SVC. I nterval placement of enteric catheter, the tip of which is not visualized but is below the diaphragm. Endotracheal tube is again noted. Additional significant interval change with respect to t he prior examination is not apparent. IMPRESSION: As above.
[2019-03-05] MEDS ORDERED: Vancomycin HCl 1 GM in Sodium Chloride 0.9% 250 ML 250 ML IVPB SCH (21:00)
[2019-03-05] MEDS ORDERED: Famotidine 20 MG TAB PO SCH (21:00)
[2019-03-05 21:02] VITALS: BMI 22.2
--- NOTE | 2019-03-05 21:19 | PDOC.EVN ---
Event Note - Event Note Event Note: Pt was evaluated in the ER by Dr. Medellin and myself at aproximately 1745. He was on bipap saturating in the upper 60s to low 70s and it was decided to emergently intubate the patient. Pt and were agreeable to the plan. He was also found to be hypotensive, and required central line placement following intubation. He tolerated the procedure well. He was started on a levophed drip. He was transferred to the CCU.
[2019-03-05] MEDS: Lactated Ringer's 1,000 ML IV SCH (22:08)
[2019-03-05 22:36] LABS: Troponin I 0.499 ng/mL (< 0.028)
[2019-03-05] MEDS: Piperacillin/Tazobactam 4.5 GM in Sodium Chloride 0.9% 100 ML IVPB SCH (22:47)
[2019-03-06 01:27] LABS: Troponin I 0.688 ng/mL (< 0.028)
[2019-03-06] MEDS ORDERED: Vancomycin HCl 1 GM in Sodium Chloride 0.9% 250 ML 250 ML IVPB SCH (03:30)
[2019-03-06] MEDS: Piperacillin/Tazobactam 4.5 GM in Sodium Chloride 0.9% 100 ML IVPB SCH ×2 (04:59→09:58)
[2019-03-06 05:36] LABS: ALT (SGPT) 253 U/L (8-55); AST (SGOT) 425 U/L (5-34); Albumin 2.7 g/dL (3.4-4.8); Alkaline Phosphatase 119 U/L (40-110); Anion Gap 18 mmol/L (10-20); BUN (Urea Nitrogen) 37 mg/dL (8.4-25.7); Bilirubin, Total 3.3 mg/dL (0.2-1.2); Calc. Creatinine Clearance 39 mL/min (70-130); Calcium 7.7 mg/dL (7.8-10.44); Carbon Dioxide 16 mmol/L (23-31); Chloride 111 mmol/L (98-107); Estimated GFR-MDRD 42; Glucose 89 mg/dL (83-110); Lactic Acid 4.1 mmol/L (0.5-2.2); Protein, Total 5.7 g/dL (5.8-8.1); Sodium 140 mmol/L (136-145)
[2019-03-06 05:44] LABS: Troponin I 0.873 ng/mL (< 0.028)
[2019-03-06 06:14] LABS: Band 22 % (5-11); Burr Cells SLIGHT = 2-5 cells (100X) (0-1/hpf); Hemoglobin 14.1 g/dL (14.0-18.0); Lymphocytes 9 % (21-51); MDiff Complete? YES; Mean Corpuscular HGB CONC 31.1 g/dL (32.0-36.0); Mean Corpuscular Hemoglobin 30.1 pg (27.0-31.0); Mean Corpuscular Volume 96.7 fL (78.0-98.0); Mean Platelet Volume 10.1 fL (7.4-10.4); Metamyelocyte 1 % (0-0); Monocytes 4 % (0-10); Neutrophil 64 % (42-75); Ovalocytes SLIGHT = 2-5 cells (100X) (0-1/hpf); Platelet Count 155 thou/uL (130-400); Platelet Morphology Comment Appears Adequate; RBC Distribution Width 15.4 % (11.5-14.5); Red Blood Cell (RBC) Count 4.67 mill/uL (4.70-6.10); White Blood Cell (WBC) Count 15.3 thou/uL (4.8-10.8)
[2019-03-06] MEDS ORDERED: Lactated Ringer's 500 ML IV SCH (07:00)
[2019-03-06] MEDS: Lactated Ringer's 1,000 ML IV SCH (07:58)
--- NOTE | 2019-03-06 08:01 | PDOC.FM ---
- Subjective Subjective: Pt required increased pressors overnight. Has continued [facility] ventilation. Sedation increased due to agitation. UOP 200mL initially and decreased throughout the night. - Objective Vital Signs & Weight: Vital Signs (12 hours) Temp Pulse BP Pulse Ox 03/06/19 07:38 90 109/73 03/06/19 04:00 98.4 F 03/06/19 00:00 97.5 F L 03/05/19 23:00 97.4 F L 03/05/19 22:00 97.4 F L 03/05/19 21:21 100 03/05/19 21:00 94.8 F L Weight Weight 70.4 kg Most Recent Monitor Data Heart Rate from ECG 91 NIBP 109/73 NIBP BP-Mean 85 Respiration from ECG 18 SpO2 100 I&O: 03/05/19 03/06/19 03/07/19 06:59 06:59 06:59 Intake Total 1038.2 Output Total 260 9 Balance 778.2 -9 Result Diagrams: 03/06/19 04:45 03/06/19 04:45 Dx/Plan (1) Peripheral arterial occlusive disease Code(s): I77.9 - DISORDER OF ARTERIES AND ARTERIOLES, UNSPECIFIED Status: Acute (2) Acute respiratory failure with hypoxia Code(s): J96.01 - ACUTE RESPIRATORY FAILURE WITH HYPOXIA Status: Acute (3) Increased anion gap metabolic acidosis Code(s): E87.2 - ACIDOSIS Status: Acute (4) Septic shock Code(s): A41.9 - SEPSIS, UNSPECIFIED ORGANISM; R65.21 - SEVERE SEPSIS WITH SEPTIC SHOCK Status: Acute (5) Cellulitis Code(s): L03.90 - CELLULITIS, UNSPECIFIED Status: Acute (6) Lactic acidosis Code(s): E87.2 - ACIDOSIS Status: Acute (7) NSTEMI (non-ST elevated myocardial infarction) Code(s): I21.4 - NON-ST ELEVATION (NSTEMI) MYOCARDIAL INFARCTION Status: Acute (8) CORBY (acute kidney injury) Code(s): N17.9 - ACUTE KIDNEY FAILURE, UNSPECIFIED Status: Acute (9) Hyperbilirubinemia Code(s): E80.6 - OTHER DISORDERS OF BILIRUBIN METABOLISM Status: Acute (10) COPD (chronic obstructive pulmonary disease) Status: Acute (11) Pulmonary hypertension Code(s): I27.20 - PULMONARY HYPERTENSION, UNSPECIFIED Status: Acute (12) Hx of pulmonary embolus Code(s): Z86.711 - PERSONAL HISTORY OF PULMONARY EMBOLISM Status: Chronic - Plan Plan: 1) Septic shock: - 2/2 cellulitis of b/l LE, requiring increasing pressor for BP maintenance and pt had decreeasede UOP, bolus 1 L and cont maintenence fluids. Repeat bolus to maintain adequate UOP -pressor support to maintain MAP>60 - broad spectrum abx vanc zosyn - pul crit consulted, appreciate recs 2) Acute hypoxic respiratory failure - cont vent support - pulm consulted, appreciate recs 3) PAD, occlusive - no evidence of continued flow to LLE, cool extremities without palpable pulse - CV surg consulted, await recs 4) CORBY vs CKD - IVF and trend - strict Is OS and monitor UOP- Pt had decreased UOP, bolused fluids monitor 5) Pulm HTN: - prior pfts done in hospital - currently intubated, cont vent support - appreciate pulm recs 6) NSTEMI: - pt on coumadin at home and INR therapeutic - this is likely demand ischemia, will contiunue to trend - EKG showed NSR with no ST changes - CV surg consulted, will await recs and hold off on antiplatelet therapy for time being. - Cardiology consulted - Trops uptrending; however, pt had no chest pain and ekg showed no st or t wave changes 7) DVT: see above, cont coumadin 8) Lactic acidosis: see above Dispo: Poor. Will cont supportive care and await CV bhavani recs. Cont breoad spectrum abx, pressors and vent support. Addendum - Attending - Attending Attestation Date/Time: 03/06/19 9216 I personally evaluated the patient and discussed the management with Dr. Cast. I agree with the History, Examination, Assessment and Plan documented above with any addition or exceptions noted below. The patient remains on the vent. Levophed was titrated up overnight. Pt will likely need AKA's bilaterally if revascularization isn't an option. Continuing broad spectrum antibiotics. Cardiology consulted for rising troponins, likely 2 /2 demand. No family currently at bedside. Condition guarded.
[2019-03-06] MEDS ORDERED: Enoxaparin Sodium 80 MG/0.8 ML SYRINGE SC SCH (09:00)
--- NOTE | 2019-03-06 09:10 | CON ---
DATE OF CONSULTATION: 03/06/2019 HISTORY OF PRESENT ILLNESS: Mr. Hemphill is a 78-year-old gentleman, who was admitted through emergency room last night. He was septic. He had a metabolic acidosis, was brought to the ICU, intubated and on pressors. Of note, he has bilateral lower extremity gangrene. He has had a CT angiogram performed, which shows on the left, popliteal artery occlusion and on the right, tibial stenosis. He has open both dry and wet gangrene below the knees bilaterally. Currently, he is sedated and intubated on the ventilator. The remainder of the information has been gleaned from his chart. PAST MEDICAL HISTORY: 1. Peripheral vascular disease. 2. COPD. 3. History of [id number] myocardial infarction. 4. Renal insufficiency. 5. Hyperbilirubinemia. 6. Pulmonary hypertension. 7. History of pulmonary embolus/DVT, on Coumadin. ALLERGIES: NONE. FAMILY HISTORY: Unable to be obtained. REVIEW OF SYSTEMS: Unable to be obtained. PHYSICAL EXAMINATION: GENERAL: This is an elderly gentleman on the ventilator, sedated on Levophed. VITAL SIGNS: His temperature is 98.3, pulse is 90 and regular, blood pressure is 90/59. LUNGS: Clear with distant breath sounds bilaterally. HEART: Rhythm is regular. ABDOMEN: Soft and nontender. EXTREMITIES: He has [id number] open and dry and wet areas of gangrene below the knees with brisk extensive ecchymosis extending posteriorly up his thighs. ASSESSMENT AND PLAN: Peripheral vascular disease with bilateral lower extremity gangrene in the setting of sepsis. Family needs to make some decisions and guarded regarding what they wish to pursue as far as further medical care. He is not a candidate for any sort of revascularization at this time and would require bilateral above-knee amputations if they choose to pursue this avenue. Job ID: [id number]
[2019-03-06 09:21] LABS: Troponin I 0.991 ng/mL (< 0.028)
[2019-03-06] MEDS ORDERED: Vancomycin HCl 1.25 GM in Sodium Chloride 0.9% 250 ML 250 ML IVPB SCH (10:00)
[2019-03-06 11:31] VITALS: BP 117/77
[2019-03-06 12:15] VITALS: TEMP 98.6
--- NOTE | 2019-03-06 12:17 | CON ---
DATE OF CONSULTATION: 03/06/2019 PRIMARY TRUSS BUILDER: Soco Pfeiffer MD REASON FOR CONSULTATION: Elevated troponins. HISTORY OF PRESENT ILLNESS: Mr. Hemphill is a 78-year-old gentleman, who comes to the hospital for bilateral lower extremity pain and shortness of breath. He was hospitalized about 2-1/2 weeks ago for COPD exacerbation. He was diuresed and did well, was sent to inpatient rehab. He slowly started to have worsening lower extremity pains. He already had severe PVD, but had very small ulcers when he was seen last time. He became short of breath. He could not walk. He came into the ER, was found to have an elevated white count and lactic acidosis. There was no flow on a CT angio of bilateral lower extremities and both legs seemed to be gangrenous. He decompensated acutely and became hypotensive. He was started on a BiPAP and eventually had to be intubated for airway protection. He had metabolic acidosis with an anion gap of 19, more likely from septic shock and lactic acidosis. Troponins were drawn and they were positive, so Cardiology has been consulted for this. Currently, the patient is intubated and sedated and unable to give any history. PAST MEDICAL HISTORY: 1. Pulmonary embolisms in the past. 2. COPD. 3. PVD, pulmonary hypertension, and right-sided heart failure in the past. PAST SURGICAL HISTORY: Cholecystectomy. FAMILY HISTORY: Noncontributory. SOCIAL HISTORY: Positive for tobacco use. No alcohol or drugs. OUTPATIENT MEDICATIONS: Include; 1. Warfarin. 2. Dulera. 3. Lisinopril 2.5 mg a day. 4. Aspirin 81 a day. REVIEW OF SYSTEMS: Unobtainable as the patient is sedated and intubated. PHYSICAL EXAMINATION: VITAL SIGNS: Temperature 94.8 on arrival and right now is 98.3, blood pressure 117/77, pulse 93, and saturating 93% on 40% FiO2. GENERAL: Sedated and intubated. NECK: Supple. LUNGS: Have reduced breath sounds bilaterally. CARDIOVASCULAR: S1 and S2. There is a grade 2/6 systolic murmur at the right upper sternal border. ABDOMEN: Soft. Positive bowel sounds. EXTREMITIES: Gangrenous bilateral lower extremities. LABORATORY DATA: Laboratory work was reviewed. CBC with a white count of 15, hemoglobin of 14, hematocrit 45, and platelet count of 155. INR was 3.0. ABG 7.28 yesterday and 7.31, the last one in the last evening. Chemistries were reviewed. Creatinine 1.6, AST 425, ALT 253, and total bilirubin 3.3. Lactic acid of 4.1. CRP was 20. Troponin was 0.4, 0.6, 0.8, and 0.9. Procalcitonin of 3.8. Albumin of 2.7. UA with 1+ bilirubin and trace blood. EKG was reviewed. CT angio of the legs was reviewed. Venous ultrasound showed nonocclusive right lower extremity DVT. Most recent echocardiogram was done just 2-1/2 weeks ago. His EF was 50% to 55% with a dilated right ventricle and reduced RV systolic function and remarkably enlarged right atrium. RVSP was estimated at 71 mmHg, moderate pulmonic regurgitation, findings consistent with pulmonary hypertension. ASSESSMENT: 1. Septic shock. 2. Acute hypoxic respiratory insufficiency. 3. Chronic obstructive pulmonary disease. 4. Gangrene of bilateral lower extremities. 5. Severe nonrevascularizable PVD. 6. Elevation myocardial infarction, likely demand ischemia from his septic type picture. PLAN: 1. We will do an echocardiogram to assess LV function and valvular structures and make sure that has not significantly changed from last evaluation just a few weeks ago. 2. No plan on any heart catheterization at this point, this is most likely a type 2 demand type of myocardial infarction demand ischemia. 3. Would hold the warfarin for now as most likely he will need bilateral amputations, so we need his INR to come down. 4. The patient is severely ill and would not be unexpected. Thank you for letting us participate in the care of your patient. We will follow. Job ID: [id number]
[2019-03-06] MEDS ORDERED: Lactated Ringer's 250 ML IV SCH (13:30)
[2019-03-06] MEDS ORDERED: Lorazepam 2 MG/ML VIAL SLOW IVP PRN (13:48)
[2019-03-06] MEDS ORDERED: Morphine 2 MG/ML SYRINGE SLOW IVP PRN (13:48)
--- NOTE | 2019-03-06 14:35 | CON ---
DATE OF CONSULTATION: 03/06/2019 SERVICE: Pulmonary Medicine. REASON FOR CONSULTATION: Septic shock. HISTORY OF PRESENT ILLNESS: The patient is a 78-year-old male with past medical history significant for peripheral vascular disease. He was in his usual state of health when he came in with sudden onset of difficulty breathing and leg discomfort that was horrendous. After short period of time, he had no ability to walk. He presented to the emergency department. Ultimately, it was discovered that he had severe gangrene of the bilateral lower extremities. He had nonreversible peripheral vascular disease that was not amenable to any surgical interventions or revascularization procedures. As such, amputation was recommended. That being said, the patient has been very clear with his family that no circumstances would he want to live under these types of circumstances if he were in a chronic debilitated state. As such, the family is making the reluctant decision to honor his wishes by transitioning over to comfort care only. At this point, he is not able to provide any additional elements of the history. He is currently in a sedated state. He appears to be comfortable. There has been no interval change to his condition overnight. He is requiring pressors in order to maintain blood pressure. These are going to be interrupted per family request. PAST MEDICAL HISTORY: 1. Peripheral vascular disease, severe. 2. Coronary artery disease. 3. History of DVT. 4. History of pulmonary embolism. 5. Chronic systolic heart failure. 6. Pulmonary hypertension. PAST SURGICAL HISTORY: Cholecystectomy. FAMILY HISTORY: Noncontributory. SOCIAL HISTORY: He has a greater than 50 pack-year history of smoking. He denied any alcohol or illicit drug use. ALLERGIES: NO KNOWN DRUG ALLERGIES. MEDICATIONS: List of his inpatient medications was reviewed. Multiple updates were made. All interventions were discontinued except for morphine and Ativan to be used on a p.r.n. basis if agitation ensues. REVIEW OF SYSTEMS: Cannot be obtained as the patient is currently encephalopathic. PHYSICAL EXAMINATION: VITAL SIGNS: Afebrile, pulse 94, blood pressure 104/62, respirations 18, and saturation 95% currently on 50% FiO2 and PEEP of 10. HEENT: Normocephalic and atraumatic. Sclerae white. Conjunctivae pink. Oral mucosa is moist without lesions. LUNGS: Decent air entry. There is a prolonged expiratory phase. Wheezing is present. This is polyphonic. No crackles or rhonchi appreciated. HEART: Normal rate and regular. ABDOMEN: Soft. Scaphoid. Nontender and nondistended. Bowel sounds are positive. MUSCULOSKELETAL: No cyanosis or clubbing. There is no pitting in the bilateral lower extremities. He has gangrenous lower extremities. NEUROLOGIC: Grossly nonfocal. LABORATORY DATA: WBC 15.3, hemoglobin 14.1, and platelets 155,000. Band count is 22% on top of 64% neutrophils. INR 3.0. A pH 7.31, pCO2 31, pO2 of 252, this is while he was on FiO2 of 100%. Troponin is up trending to 0.99, lactate 4.1 is clearing. AST is uptrending, CRP is elevated, procalcitonin is elevated. Creatinine 1.60 and uptrending well above baseline of point of 1.2. Urinalysis is essentially unremarkable. Gram-negative mini is growing in bacterial culture. Blood cultures x2 and urine culture negative. ASSESSMENT: 1. Septic shock. 2. Gangrene of the bilateral lower extremities. 3. Peripheral vascular disease, inoperable. 4. Toxic encephalopathy. DISCUSSION AND PLAN: The patient's family has made the decision to transition over to comfort care only. As such, all interventions will be interrupted. We will give morphine and Ativan on as needed basis for air hunger, agitation, or shortness of breath. We will extubate him once family arrives and they are ready for the transition. Critical Care will follow while he remains in the ICU. If he continues to breathe, after about 1 to 2 hours, he can be transitioned to a more comfortable unit. CRITICAL CARE TIME: 30 minutes. Job ID: [id number]
[2019-03-06] MEDS ORDERED: Vancomycin HCl 1 GM in Premix Bag 1 BAG IVPB SCH (15:00)
--- NOTE | 2019-03-06 15:07 | PDOC.BPN ---
- Brief Progress Note TOD: 14:34 Progress note of : PE: HEENT: Pupils fixed and dilated, no pupillary light response or corneal reflex Card: No pulse, no auscultated heart sounds Resp: No spontaneous respirations Neuro: no withdrawal to panful stimuli TOD: 03/06/2019, 14:34 The family does not request an autopsy. Orders: TOD: 14:34 Verbally ordered to remove all lines. Okay to release body to cinder pit worker.
[2019-03-06] MEDS ORDERED: Famotidine 20 MG TAB PO SCH (21:00)
--- NOTE | 2019-03-07 10:04 | OP ---
DATE OF PROCEDURE: 03/05/2019 PROCEDURE: Internal jugular central line placement. INDICATION: Hypotension. CO-SURGEONS: Dr. Medellin and Dr. Davison. CONSENT: Consent was obtained from the patient prior to the procedure, indications, risks, and benefits were explained at length. The procedure was performed emergently and permission was implied, because of the emergent nature. PROCEDURE SUMMARY: Time-out was performed. The hands were washed immediately prior to the procedure. Surgical cap, mask, protective eye wear, full gown and sterile gloves were worn throughout the procedure. The patient was placed in supine position. Right chest region was prepped using chlorhexidine scrub and draped in sterile fashion using a full drape and sterile probe cover over ultrasound probe. The medial and lateral heads of the sternocleidomastoid muscle were identified as well as the carotid pulse. The right internal jugular vein was identified using linear probe ultrasound. Topical anesthesia was not used as patient was already sedated following intubation. Introducer needle was inserted into internal jugular vein under direct ultrasound visualization. The venous blood was withdrawn. The syringe was removed and a guidewire was advanced into the introducer needle. A small incision was made at the skin surface with a scalpel and the introducer needle was exchanged for a dilator over the guidewire. After appropriate dilation was obtained, the dilator was exchanged over the wire for a triple-lumen central venous catheter. The wire was removed and the catheter was sutured in place. A sterile shield was placed over the catheter at the insertion site. The patient tolerated the procedure well. At the time of procedure completion, all ports aspirated and flushed properly. Postprocedure chest x-ray appeared to show the catheter properly in place. ESTIMATED BLOOD LOSS: 2 mL. Job ID: [id number] [facility]
--- NOTE | 2019-03-07 16:57 | EKG ---
Test Reason : Blood Pressure : / mmHG Vent. Rate : 091 BPM Atrial Rate : 091 BPM P-R Int : 156 ms QRS Dur : 104 ms QT Int : 386 ms P-R-T Axes : 082 253 070 degrees QTc Int : 474 ms Sinus rhythm with occasional Premature ventricular complexes Right superior axis deviation Pulmonary disease pattern Right ventricular hypertrophy Abnormal ECG When compared with ECG of 16-FEB-2019 12:56, (Unconfirmed) Premature ventricular complexes are now Present Vent. rate has decreased BY [address] Diego BELLA ([id number]) on 03/07/2019 4:56:31 PM Referred By: HECTOR Confirmed By:DR. Diego BELLA
== END 2019-03-06 14:34 | disposition expired | DRG 871 ==
LOC: ERS 13:12 → CCU 17:34
PROVIDERS: ADMIT Family Medicine; ATTEND Family Medicine
PROC: 02HV33Z Insertion of Infusion Device into Superior Vena Cava, Percutaneous Approach (ICD-10-PCS; principal; 2019-03-05)
PROC: B548ZZA Ultrasonography of Superior Vena Cava, Guidance (ICD-10-PCS; 2019-03-05)
PROC: 0BH18EZ Insertion of Endotracheal Airway into Trachea, Via Natural or Artificial Opening Endoscopic (ICD-10-PCS; 2019-03-05)
PROC: 5A1935Z Respiratory Ventilation, Less than 24 Consecutive Hours (ICD-10-PCS; 2019-03-05)
DX: A41.9 Sepsis, unspecified organism (principal); R65.21 Severe sepsis with septic shock; J96.01 Acute respiratory failure with hypoxia; I26.99 Other pulmonary embolism without acute cor pulmonale; G92 Toxic encephalopathy; I21.A1 Myocardial infarction type 2; L03.115 Cellulitis of right lower limb; E87.2 Acidosis; L03.116 Cellulitis of left lower limb; N17.9 Acute kidney failure, unspecified; K76.6 Portal hypertension; I50.22 Chronic systolic (congestive) heart failure; J44.9 Chronic obstructive pulmonary disease, unspecified; I27.20 Pulmonary hypertension, unspecified; F03.90 Unspecified dementia, unspecified severity, without behavioral disturbance, psychotic disturbance, mood disturbance, and anxiety; I11.0 Hypertensive heart disease with heart failure; I73.9 Peripheral vascular disease, unspecified; F17.210 Nicotine dependence, cigarettes, uncomplicated; Z79.01 Long term (current) use of anticoagulants; Z90.49 Acquired absence of other specified parts of digestive tract; I25.2 Old myocardial infarction; Z86.718 Personal history of other venous thrombosis and embolism
CPT/HCPCS: 31500; 36415; 36556; 51702; 71045; 75635; 80053; 81003; 81015; 82550; 82553; 82805; 83605; 84145; 84484; 85025; 85610; 85652; 85730; 86140; 86850; 86900; 86901; 87040; 87070; 87077; 87086; 87186; 87205; 93005; 93010; 94002; 94003; 94640; 94660; 94760; 96361; 96365; 96374; 96375; J2250; J2270; J2405; J2543; J2704; J3010; J3370; J3490; J7620; Q9967